=== PATIENT | female | born 1970 | race African-American/Black ===

== ENCOUNTER 2024-11-24 01:25 | Day surgery (SDC) | payer OTHER, SELFPAY ==
[2024-11-18 09:56] VITALS: BMI 38.0
--- NOTE | 2024-11-18 09:57 | PC.NURSE ---
Report to the Outpatient Waiting Room, entrance under the green pavilion located off [facility], at time _0700_ on date _[id number]_. Planned Procedure Time: _0900_.? Time changes happen often and if your time is changed the preop area will call you the afternoon before. - You and your visitor will be asked to self-screen and do not enter if you have any COVID symptoms. Please call surgeon if you need to reschedule. - A mask is optional within the hospital at this time. Patients may have clear liquids (water, carbonated beverages, clear teas, apple juice) until 3 hours prior to surgery with a maximum of 20 ounces. - No food from midnight until time of surgery and no smoking, or chewing tobacco (or any form of nicotine). No chewing gum, candy or mints. Take only the following medications with a SIP of water on the morning of surgery: ___None____ DO NOT STOP ANY OF YOUR OTHER PRESCRIPTION MEDICATIONS PRIOR TO SURGERY EXCEPT THE FOLLOWING Hold all vitamins and supplements for 3 days per anesthesiologist. Medications to discontinue per physician Date to take last xvgk___[id number]___ Please no make-up, nail portuguese, hairspray, perfume, deodorant, or body powder the day of surgery.? No jewelry (including any body piercings) or valuables the day of surgery, leave them at home.? Please take a shower or bath the night before, or the morning of, surgery with an antibacterial soap.? Wear comfortable, loose fitting clothing.? - Jewelry must be removed prior to entering the operating room.? Rings and piercings that are not removed may be cut off. - The hospital will not accept responsibility for valuables.? - Please leave all valuables, including medications, at home the day of surgery. If you are going home after surgery, a licensed team cdl driver must drive you home.? - NO public transportation without another adult if you receive anesthesia. - We recommend that an adult stay with you for 24 hours following discharge. - We also recommend that you do not drive, make important decision, drink alcoholic beverages, or take any drugs that were not prescribed by your health care provider for at least 24 hours after your discharge time. Follow any additional instructions given to you from your surgeon. Telephone instructions given to __Denise___and asked if any additional questions and then verbalized understanding. Patient advised to call surgeon office or pre surgery nurse liaison [phone] if any additional questions.
--- OUTSIDE RECORDS SUMMARY | 2024-11-24 01:28 | XMS_ITS | Clinical Summary ---
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 Name Role Phone Unavailable Primary Care Provider Unavailabl e Social History Tobacco Use Types Packs/Day Years Used Date Smoking Tobacco: Never Assessed Comments Unknown Sex and Gender Information Value Date Recorded Sex Assigned at Not on file Legal Sex Female 2:32 PM [employer] Gender Identity Not on file Sexual Orientation Not on file Plan of Treatment Health Maintenance Due Date Last Done Comments Hepatitis C Virus (HCV) Screening 1968 TdaP Immunization 1968 Hepatitis B Immunization (1 of 3 - 19+ 3-dose series) 08/18/1987 Pap Smear 1989 Cervical Cancer Screening (CCS) 1998 HPV/Cotest 1998 Colonoscopy 2013 Colorectal Cancer Screening 2013 Cologuard 2018 Immunochemical Fecal Occult Blood 2018 Mammogram 2018 Pneumococcal Immunization (5 0+ years) (1 of 1 - PCV) 2018 Influenza Immunization (#1) 02/16/20240 10/2019, 08/18/2019 SARS-COV-2 Immunization (2023- season) 2024 Respiratory Syncytial Virus (RSV) Immunization (Adult) (1 - 1-dose 75+ series) 08/18/2043 Zoster Immunization Completed 04/21/2020, 08/18/2019 Meningococcal Immunization (ACWY) Aged Out No longer eligible b ased on patient's age to complete this topic Pneumococcal Immunization Combined Aged Out No longer eligible b ased on patient's age to complete this topic Rotavirus Immunization Aged Out No lo nger eligible based on patient's age to complete this topic
--- OUTSIDE RECORDS SUMMARY | 2024-11-24 01:28 | XMS_ITS | Data Portability ---
Author Organization [facility] Address [address] [place] [address] Assessment No assessment recorded. Plan of Treatment Reminders Order Date Submit Date Provider Last Modified By Organization Details Last Modified Time Details Appointments ANY 2024 08:00A DEEDEE Calvin Not available Not available Not available ANY 2024 09:00A DEEDEE Calvin Not available Not available Not available Lab HbA1c (hemoglob in A1c), blood 2024 025 In-Office Order, Internal Use Only DO Not Attach Compendium DO Not Attach Compendium, Do Not Delete/merge, [id number] 11/10/2024 09:01:09 CMP, serum or plasma 2024 025 [facility], [address] [place] [address], [id number], 07/27/2024 13:25:00 vitamin D, 25-hydrox y, total, serum 2024 025 [facility], [facility] [place], [id number], 07/27/2024 13:27:23 HbA1c (hemoglob in A1c), blood 2024 025 TAY In-Office Order, Internal Use Only DO Not Attach Compendium DO Not Attach Compendium, Do Not Delete/merge, [id number] 07/09/2024 06:54:46 microalbu min/creat inine, mass ratio, urine 2024 025 [facility], [address] [place] [address], [id number], 07/27/2024 13:25:51 lipid panel, serum 2023 025 [facility], [address] [place] [address], [id number], 09/07/2024 08:05:20 hepatic function panel, serum 2023 025 [facility], [address] [place] [address], [id number], 09/07/2024 08:05:21 HbA1c (hemoglob in A1c), blood 2023 025 [facility], [address] [place] [address], [id number], 09/07/2024 08:05:21 BMP, serum or plasma 2023 025 [facility], [address] [place] [address], [id number], 09/07/2024 08:05:21 CBC w/ auto diff 2023 025 [facility], [address] [place] [address], [id number], 09/07/2024 08:05:21 GFR, estimated (eGFR), serum 2023 025 [facility], [address] [place] [address], [id number], 09/07/2024 08:05:21 creatinin e, urine 2023 025 [facility], [address] [place] [address], [id number], 09/07/2024 08:05:20 TSH + free T4, serum 2023 025 [facility], [address] [place] [address], [id number], 09/07/2024 08:05:21 hepatic function panel, serum [address] [facility], [address] [place] [address], [id number], 04/01/2024 14:51:12 lipid panel, serum 2023 024 [facility], [address] [place] [address], [id number], 03/31/2024 14:38:36 CBC w/ auto diff [address] [facility], [address] [place] [address], [id number], 04/01/2024 14:51:11 BMP, serum or plasma [address] [facility], [address] [place] [address], [id number], 04/01/2024 14:51:11 erythrocy te sedimenta tion rate by westergre n method [address] [facility], [address] [place] [address], [id number], 04/01/2024 14:51:11 CK (creatine kinase), total, serum [address] [facility], [address] [place] [address], [id number], 04/01/2024 14:51:11 Referral cardiolog ist referral - Abnormal ECG and HTN 2024 025 [email or web address] Cardiology [facility], [address], [address], [place], [id number], 11/10/2024 08:44:02 Procedures None recorded. Surgeries None recorded. Imaging US, parotid gland - Mass on CT head [address] Radiology[facility], [address] [place], [address], 11/10/2024 08:44:02 XR, finger(s) - xray right index finger, DIP/PIP pain 2024 025 [facility], [address] [place], [address], 09/25/2024 17:15:20 CT, coronary calcium score [address] [facility] Scheduling, [facility], [place], [address], 03/23/2024 12:02:36 Medication Orders lisinopri l 20 mg tablet 2024 025 [facility] #[id number], [address], [place], [id number], 11/10/2024 08:31:34 Medrol (Tyrone) 4 mg tablets in a dose pack 2024 025 [facility] #[id number], [address], [place], [id number], 11/10/2024 08:13:25 cholecalc iferol (vitamin D3) 1,250 mcg (50,000 unit) capsule 2024 025 [facility] #[id number], [address], [place], [id number], 07/08/2024 12:36:15 lisinopri l 5 mg tablet 2024 025 [facility] #[id number], [address], [place], [id number], 07/08/2024 12:36:16 Mounjaro 10 mg/0.5 mL subcutane ous pen injector 2024 025 [facility] #[id number], [address], [place], [id number], 07/08/2024 12:38:24 Crestor 5 mg tablet 2023 025 [facility] #[id number], [address], [place], [id number], 11/10/2024 08:13:54 losartan 25 mg tablet 2023 024 [facility] #[id number], [address], [place], [id number], 06/08/2024 09:11:03 Repatha Syringe 140 mg/mL subcutane ous syringe 2023 024 [facility], [address], [place], [id number], 04/30/2024 11:17:08 Patient TargetsNo targets recorded. Patient Instructions Encounter Date Encounter Id Patient Instructions Last Modified By Organization Details Last Modified Time 03/10/2024 [id number] A healthy lifestyle: care instructions [email or web address] Not available 03/10/2024 10:45:42 07/08/2024 [id number] A healthy lifestyle: care instructions [email or web address] Not available 07/08/2024 12:36:09 09/23/2024 [id number] rotator cuff: exercises [email or web address] Not available 09/23/2024 17:57:33 A healthy lifestyle: care instructions [email or web address] Not available 09/23/2024 17:47:47 11/10/2024 [id number] A healthy lifestyle: care instructions [email or web address] Not available 11/10/2024 08:31:25 Reason for Referral Rn Licensed Practical Referral for El ectrocardiogram abnormal Abnormal ECG and HTN Referring Physician: Alfonso Butt, Family Medicine, Encounter Date: 11/10/2024 Results Created Date Observation Date Name Description Value Unit Range Abnormal Flag Note LastModifiedBy Organization Detail LastModifiedTime 03/04/20 24 03/04/2024 Hemog lobin A1c/H emogl obin. total in Blood hemoglobin A1C, POC 6 % low: 4%high : 5.6% Hemog lobin A1C, POC 6.0 4.0 - 5.6 % Not Available Not Available 09/23/2024 04:18:54 11/03/1911/02/2024 Compr ehens vickie metab olic 1999 panel - Serum or Plasm a glucose [mass/volume ] in serum or plasma 92 text: 70 - 99 mg/dL GLUCO SE 92 70 - 99 MG/DL 11/02 1:[address] [facility] Not Available Not Available 11/02/2024 15:19:02 11/03/19 25 11/02/2024 Compr ehens vickie metab olic 1999 panel - Serum or Plasm a urea nitrogen [mass/volume ] in serum or plasma 13 text: 7 - 18 mg/dL BUN 13 7 - 18 MG/DL 11/02 1:[address] [facility] Not Available Not Available 11/02/2024 15:19:02 11/03/19 25 11/02/2024 Compr ehens vickie metab olic 1999 panel - Serum or Plasm a creatinine [mass/volume ] in serum or plasma 0.67 text: 0.55 - 1.02 mg/dL CREAT ININE S/P/B 0.67 0.55 - 1.02 MG/DL 11/02 1:[address] [facility] Not Available Not Available 11/02/2024 15:19:02 11/03/19 25 11/02/2024 Compr ehens vickie metab olic 2000 panel - Serum or Plasm a sodium [moles/volum e] in serum or plasma 136 text: 136 - 145 mmol/L SODIU M S/P/B 136 136 - 145 MMOL/ L 11/02 1:37 PM CDT [facility] Not Available Not Available 11/02/2024 15:19:02 11/03/19 25 11/02/2024 Compr ehens vickie metab olic 1999 panel - Serum or Plasm a potassium [moles/volum e] in serum or plasma 4.1 text: 3.5 - 5.1 mmol/L POTAS SIUM S/P/B 4.1 3.5 - 5.1 MMOL/ L 11/02 1:37 PM CDT [facility] Not Available Not Available 11/02/2024 15:19:02 11/03/19 25 11/02/2024 Compr ehens vickie metab olic 1999 panel - Serum or Plasm a chloride [moles/volum e] in serum or plasma 107 text: 97 - 115 mmol/L CHLOR ISABEL S/P/B 107 97 - 115 MMOL/ L 11/02 1:37 PM CDT [facility] Not Available Not Available 11/02/2024 15:19:02 11/03/19 25 11/02/2024 Compr ehens vickie metab olic 1999 panel - Serum or Plasm a carbon dioxide, total [moles/volum e] in serum or plasma 25 text: 21 - 32 mmol/L CO2 25.0 21 - 32 MMOL/ L 11/02 1:37 PM CDT [facility] Not Available Not Available 11/02/2024 15:19:02 11/03/19 25 11/02/2024 Compr ehens vickie metab olic 1999 panel - Serum or Plasm a calcium [mass/volume ] in serum or plasma 8.9 text: 8.5 - 10.1 mg/dL CALCI UM S/P/B 8.9 8.5 - 10.1 MG/DL 11/02 1:37 PM CDT [facility] Not Available Not Available 11/02/2024 15:19:02 11/03/19 25 11/02/2024 Compr ehens vickie metab olic 2000 panel - Serum or Plasm a bilirubin.to terry [mass/volume ] in serum or plasma 0.2 text: 0.2 - 1.2 mg/dL BILIR UBIN TOTAL S/P/B 0.2 0.2 - 1.2 MG/DL 11/02 1:[address] [facility] Not Available Not Available 11/02/2024 15:19:02 11/03/19 25 11/02/2024 Compr ens vickie metab ol 1999 panel - Serum or Plasm a protein [mass/volume ] in serum or plasma 7.7 text: 6.4 - 8.2 g/dL TOTAL PROTE IN S/P/B 7.7 6.4 - 8.2 G/DL 11/02 1:[address] [facility] Not Available Not Available 11/02/2024 15:19:02 11/03/19 25 11/02/2024 Compr ehens vickie metab olic 1999 panel - Serum or Plasm a albumin [mass/volume ] in serum or plasma 3.5 text: 3.4 - 5.0 g/dL ALBUM IN S/P/B 3.5 3.4 - 5.0 G/DL 11/02 1:[address] [facility] Not Available Not Available 11/02/2024 15:19:02 11/03/19 25 11/02/2024 Compr ehens vickie metab olic 1999 panel - Serum or Plasm a aspartate aminotransfe rase [enzymatic activity/vol ume] in serum or plasma 18 U/L low: 15U/Lh igh: 37U/L AST 18 15 - 37 U/L 11/02 1:37 PM CDT [facility] Not Available Not Available 11/02/2024 15:19:02 11/03/19 25 11/02/2024 Compr ehens vickie metab olic 1999 panel - Serum or Plasm a alanine aminotransfe rase [enzymatic activity/vol ume] in serum or plasma 26 U/L low: 14U/Lh igh: 55U/L ALT 26 14 - 55 U/L 11/02 1:37 PM CDT [facility] Not Available Not Available 11/02/2024 15:19:02 11/03/19 25 11/02/2024 Compr ehens vickie metab olic 1999 panel - Serum or Plasm a alkaline phosphatase [enzymatic activity/vol ume] in serum or plasma 71 U/L low: 50U/Lh igh: 136U/L ALKAL INE PHOSP HATAS E S/P/B 71 50 - 136 U/L 11/02 1:37 PM CDT [facility] Not Available Not Available 11/02/2024 15:19:02 11/03/19 25 11/02/2024 Compr ehens vickie metab olic 1999 panel - Serum or Plasm a anion gap in serum or plasma by calculation 4 text: 2 - 10 mmol/L ANION GAP 4.0 2 - 10 MMOL/ L 11/02 1:37 PM CDT [facility] Not Available Not Available 11/02/2024 15:19:02 11/03/19 25 11/02/2024 Compr ehens vickie metab olic 1999 panel - Serum or Plasm a urea nitrogen/cre atinine [mass ratio] in serum or plasma 19.4 low: 6high: 26 BUN CREAT ININE RATIO 19.4 6 - 26 11/02 1:37 PM CDT [facility] Not Available Not Available 11/02/2024 15:19:02 11/03/19 25 11/02/2024 Compr ehens vickie metab olic 1999 panel - Serum or Plasm a albumin/glob ulin [mass ratio] in serum or plasma 0.8 text: 1.0 - 2.0 ratio low A/G RATIO 0.8 (L) 1.0 - 2.0 RATIO 11/02 1:37 PM CDT [facility] Not Available Not Available 11/02/2024 15:19:02 11/03/19 25 11/02/2024 Compr ehens vickie metab olic 2000 panel - Serum or Plasm a glomerular filtration rate [volume rate/area] in serum, plasma or blood by creatinine-b ased formula (CKD-epi 2020)/1.73 sq M >90 text: >90 mL/min /1.73 M2 GFR ESTIM ATE >90 >90 ML/MD N/1.7 3 M2 11/02 1:37 PM CDT [facility] Not Available Not Available 11/02/2024 15:19:02 11/03/1911/02/2024 Britt duncan 1999 panel - Serum or Plasm a interpretati on and review of laboratory results Abnorm al Not Available Not Available 15:19:02 11/03/1911/02/2024 CBC W Auto Diffe renti al panel - Blood leukocytes [#/volume] in blood by automated count 6.84 text: 4.5 - 11.0 x10'3/ uL WBC 6.84 4.5 - 11.0 x10'3 /uL 11/02 1:18 PM CDT [facility] Not Available Not Available 11/02/2024 15:19:02 11/03/19 25 11/02/2024 CBC W Auto Diffe renti al panel - Blood erythrocytes [#/volume] in blood by automated count 4.76 text: 4.20 - 5.40 x10'6/ uL RBC 4.76 4.20 - 5.40 x10'6 /uL 11/02 1:18 PM CDT [facility] Not Available Not Available 11/02/2024 15:19:02 11/03/19 25 11/02/2024 CBC W Auto Diffe renti al panel - Blood hemoglobin [mass/volume ] in blood 13.8 text: 12.0 - 16.0 g/dL HGB 13.8 12.0 - 16.0 G/DL 11/02 1:18 PM CDT [facility] Not Available Not Available 11/02/2024 15:19:02 11/03/19 25 11/02/2024 CBC W Auto Diffe renti al panel - Blood hematocrit [volume fraction] of blood by calculation 41.8 % low: 38%hig h: 48% HCT 41.8 38.0 - 48.0 % 11/02 1:18 PM CDT [facility] Not Available Not Available 11/02/2024 15:19:02 11/03/19 25 11/02/2024 CBC W Auto Diffe renti al panel - Blood MCV [entitic mean volume] in red blood cells 87.8 text: 81.0 - 99.0 fL MCV 87.8 81.0 - 99.0 FL 11/02 1:18 PM CDT [facility] Not Available Not Available 11/02/2024 15:19:02 11/03/19 25 11/02/2024 CBC W Auto Diffe renti al panel - Blood MCH [entitic mass] 29 pg low: 27pghi gh: 31pg MCH 29.0 27.0 - 31.0 PG 11/02 1:18 PM CDT [facility] Not Available Not Available 11/02/2024 15:19:02 11/03/19 25 11/02/2024 CBC W Auto Diffe renti al panel - Blood MCHC [entitic mass/volume] in red blood cells 33 text: 32.0 - 36.0 g/dL MCHC 33.0 32.0 - 36.0 G/DL 11/02 1:18 PM CDT [facility] Not Available Not Available 11/02/2024 15:19:02 11/03/19 25 11/02/2024 CBC W Auto Diffe renti al panel - Blood RDW 13.4 % low: 11.5%h igh: 14.5% RDW 13.4 11.5 - 14.5 % 11/02 1:18 PM CDT [facility] Not Available Not Available 11/02/2024 15:19:02 11/03/19 25 11/02/2024 CBC W Auto Diffe renti al panel - Blood platelets [#/volume] in blood 341 text: 130 - 400 x10'3/ uL PLT 341 130 - 400 x10'3 /uL 11/02 1:18 PM CDT [facility] Not Available Not Available 11/02/2024 15:19:02 11/03/19 25 11/02/2024 CBC W Auto Diffe renti al panel - Blood platelet [entitic mean volume] in blood 10.3 text: 9.3 - 12.2 fL MPV 10.3 9.3 - 12.2 FL 11/02 1:18 PM CDT [facility] Not Available Not Available 11/02/2024 15:19:02 11/03/19 25 11/02/2024 CBC W Auto Diffe renti al panel - Blood differential cell count method - blood AUTOMA EUGENE DIFFER ENTIAL DIFFE RENTI AL TYPE AUTOM ATED DIFFE RENTI AL 11/02 1:18 PM CDT [facility] Not Available Not Available 11/02/2024 15:19:02 11/03/19 25 11/02/2024 CBC W Auto Diffe renti al panel - Blood neutrophils/ leukocytes in blood by automated count 56 % NEUTR OPHIL S % 56.0 % 11/02 1:18 PM CDT [facility] Not Available Not Available 11/02/2024 15:19:02 11/03/19 25 11/02/2024 CBC W Auto Diffe renti al panel - Blood lymphocytes/ leukocytes in blood by automated count 34.1 % LYMPH OCYTE S % 34.1 % 11/02 1:18 PM CDT [facility] Not Available Not Available 11/02/2024 15:19:02 11/03/19 25 11/02/2024 CBC W Auto Diffe renti al panel - Blood monocytes/le ukocytes in blood by automated count 7.2 % MONOC YTES % 7.2 % 11/02 1:18 PM CDT [facility] Not Available Not Available 11/02/2024 15:19:02 11/03/19 25 11/02/2024 CBC W Auto Diffe renti al panel - Blood eosinophils/ leukocytes in blood by automated count 1.9 % EOSIN OPHIL S 1.9 % 11/02 1:18 PM CDT [facility] Not Available Not Available 11/02/2024 15:19:02 11/03/19 25 11/02/2024 CBC W Auto Diffe renti al panel - Blood basophils/le ukocytes in blood by automated count 0.7 % BASOP HILS 0.7 % 11/02 1:18 PM CDT [facility] Not Available Not Available 11/02/2024 15:19:02 11/03/19 25 11/02/2024 CBC W Auto Diffe renti al panel - Blood immature granulocytes /leukocytes in blood by automated count 0.1 % IMMAT URE GRANS % 0.1 % 11/02 1:18 PM CDT [facility] Not Available Not Available 11/02/2024 15:19:02 11/03/19 25 11/02/2024 CBC W Auto Diffe renti al panel - Blood neutrophils [#/volume] in blood 3.83 text: 1.80 - 7.70 x10'3/ uL ABS. NEUTR OPHIL S 3.83 1.80 - 7.70 x10'3 /uL 11/02 1:18 PM CDT [facility] Not Available Not Available 11/02/2024 15:19:02 11/03/19 25 11/02/2024 CBC W Auto Diffe renti al panel - Blood lymphocytes [#/volume] in blood 2.33 text: 1.00 - 4.80 x10'3/ uL ABS. LYMPH OCYTE S 2.33 1.00 - 4.80 x10'3 /uL 11/02 1:18 PM CDT [facility] Not Available Not Available 11/02/2024 15:19:02 11/03/19 25 11/02/2024 CBC W Auto Diffe renti al panel - Blood monocytes [#/volume] in blood 0.49 text: 0.24 - 0.86 x10'3/ uL ABS. MONOC YTES 0.49 0.24 - 0.86 x10'3 /uL 11/02 1:18 PM CDT [facility] Not Available Not Available 11/02/2024 15:19:02 11/03/1911/02/2024 CBC W Auto Diffe renti al panel - Blood eosinophils [#/volume] in blood 0.13 text: 0.04 - 0.36 x10'3/ uL ABS. EOSIN OPHIL S 0.13 0.04 - 0.36 x10'3 /uL 11/02 1:18 PM CDT [facility] Not Available Not Available 11/02/2024 15:19:02 11/03/1911/02/2024 CBC W Auto Diffe renti al panel - Blood basophils [#/volume] in blood 0.05 text: 0.01 - 0.08 x10'3/ uL ABS. BASOP HILS 0.05 0.01 - 0.08 x10'3 /uL 11/02 1:18 PM CDT [facility] Not Available Not Available 11/02/2024 15:19:02 11/03/19 25 11/02/2024 CBC W Auto Diffe renti al panel - Blood immature granulocytes [#/volume] in blood 0.01 text: 0.00 - 0.49 x10'3/ uL ABS. IMMAT URE GRANU LOCYT ES 0.01 0.00 - 0.49 x10'3 /uL 11/02 1:18 PM CDT [facility] Not Available Not Available 11/02/2024 15:19:02 11/11/1911/10/2024 HbA1c (hemo globi n A1c), blood HbA1c 5.9 Not Available In-Office Order Internal Use Only DO Not Attach Compendium DO Not Attach Compendium, Do Not Delete/merge, [id number] 11/10/2024 09:00:22 03/14/[address], coron jett calci um score [facility] [address] [place] [address] [facility] [address] [facility] [place] [address] EXAMIN ATION: Multis lice Helica l CT Hanks ry Calciu m Damion g REASON FOR EXAM: Screen ing for heart diseas e COMPAR FERNY: None TECHNI QUE: Multis lice helica l CT images of the proxim al hanks ry arteri es with a comput er genera eugene calcif icatio n score. A dose loweri ng techni que was used for this proced ure, which may includ e, but is not limite d to, dose reduct ion techni que, automa eugene exposu re contro l, iterat vickie recons tructi on, ALARA (As Low As Reason ably Achiev able), or Image Gently techni ques. Result s: Left main: 0 LAD: 18.3 Circum flex: 0 Right hanks ry: 43.7 Total Score: 62.0 Commen ts: There is no medias tinal adenop athy, and there are no pulmon jett nodule s in the visual ized portio ns of the chest. Calciu m score guidel rody: Total Score* Calciu m Plaque Baggs *Risk *Proba bility of signif icant CAD 0 No Plaque Very Low Very unlike ly 1-10 Minima l Plaque Low Unlike ly 11-100 Mild Plaque Modera te Low likeli elliott of signif icant stenos is <50% 101-40 0 Modera te Plaque Modera tely High Modera te likeli elliott of signif icant stenos is (>50%) Over 400 Extens vickie Plaque High High likeli elliott of signif icant stenos is (>50%) The amount of hanks ry artery calcif icatio n correl ates with the severi ty of hanks ry athero sclero sis and the probab ility of future signif icant event. Calcif icatio n is not site specif ic for stenos is and does not identi fy non-ca lcifie d athero sclero tic plaque , but rather indica abdullahi the extent of athero sclero sis in the hanks ry arteri es overal l. The score may be used as an indica tor for risk factor modifi cation or additi onal cardia c testin g. Signif icant change in calciu m score over time may be indica tive of subseq uent diseas e develo pment or useful as a benchm ark to assess preven tative progra ms. =====I MPRESS ION:== === Total Score: 62.0 Mild plaque , modera te risk, low likeli elliott of signif icant stenos is (<50%) . ====== ====== ====== === Ordere d By: FAY COBB [facility] ly Signed By: Devin langston MD on 12:03 PM Interp reted By: Devin langston MD, 12:[address] [facility], [place], [address], 03/23/2024 12:02:23 07/21/19 25 07/21/2024 MAMMO , scree edil, tomos ynthe sis, bilat eral No observ ation record ed. BARCODE Not Available 2024 16:49:11 Result Notes None recorded. Problems Name Problem SNOMED Code Status Onset Date Resolution Date Notes Provider Name and Address Organization Details Recorded Time Jaw pain 339594298 Active 2023 Fay Godoy DO Attn: Sadiq driver,[address] [facility], [place], [address], [facility] 4 10:41:56 Type 2 diabetes mellitus without complicatio n 752899339 Active 2023 Fay Godoy DO Attn: Sadiq driver,[address] [facility], [place], [address], [facility] 4 10:42:24 Obesity 150354843 Active 2023 Fay Godoy DO Attn: Sadiq driver,[address] [facility], [place], [address], [facility] - [facility] 4 10:45:39 Essential hypertensio n 49655552 Active 2024 DEEDEE Roldan Attn: Sadiq driver,[address] [facility], [place], [address], [place] - [facility] 5 08:45:02 Electrocard iogram abnormal 987207448 Active 2024 DEEDEE Roldan Attn: Sadiq g,[address] [facility], [place], [address], [facility] - [facility] 5 08:45:04 Mass of left parotid gland [id number] 9103 Active 2024 DEEDEE Roldan Attn: Sadiq driver,[address] [facility], [place], [address], [place] - [facility] 5 08:45:05 Problem Notes None recorded. Medical Equipment None Reported. Allergies Allergen ID Allergen Name Allergen Category Reaction Reaction Severity Criticality Documentation Date Start Date Code Code System Note Provider Name and Address Organization Details Recorded Time [id number] Trulicity medicatio n rash moderate high 03/10/2024 46282 96 RxNorm Rossi Ramos MA null, [place] - [facility] 4 10:36:00 Medications Name Sig Start Date Stop Date Status Note LastModified by Organization Details LastModified Time amoxicillin 500 mg capsule 06/08 completed Not Available Not Available Not Available lisinopril 20 mg tablet Take 1 tablet every day by oral route. 2024 active Not Available Not Available Not Avai lable Medrol (Tyrone) 4 mg tablets in a dose pack Take 1 dose pk by oral route. 11/10 completed Not Available Not Available Not Available losartan 25 mg tablet Take 1 tablet every day by oral route. 06/08 completed Not Available Not Available Not Available lisinopril 5 mg tablet Take 1 tablet every day by oral route. 2024 active Not Available Not Available Not Avai lable rosuvastati n 5 mg tablet Take 1 tablet every day by oral route. 11/10 completed Not Available Not Available Not Available cholecalcif genoveva (vitamin D3) 1,250 mcg (50,000 unit) capsule Take 1 capsule every week by oral route. 2024 active Not Available Not Available Not Avai lable Repatha Syringe 140 mg/mL subcutaneou s syringe Inject 1 mL every 2 weeks by subcutane ous route for 30 days. 04/30 completed Not Available Not Available Not Available Mounjaro 7.5 mg/0.5 mL subcutaneou s pen injector Inject 7.5 mg every week by subcutane ous route. 09/23 completed Not Available Not Available Not Available Mounjaro 10 mg/0.5 mL subcutaneou s pen injector Inject 10 mg every week by subcutane ous route. 2024 active Not Available Not Available Not Avai lable Vitals Date Recorded Body height Oxygen saturation Oxygen saturation in Arterial blood by Pulse oximetry Heart rate Body mass index (BMI) Body weight Systolic blood pressure Diastolic blood pressure Provider Name and Address Organization Details Last Updated DateTime 5 154.94 cm 99 % 99 % 85 /min 39.7 kg/m2 55652.4 g 138 mm[Hg] 82 mm[Hg] Alida Diallo MA [place] - [facility] 5 12:12:05 Date Recorded Body height Body mass index (BMI) Body weight Oxygen saturation Oxygen saturation in Arterial blood by Pulse oximetry Heart rate Systolic blood pressure Diastolic blood pressure Provider Name and Address Organization Details Last Updated DateTime 5 154.94 cm 38.8 kg/m2 86953.5 9 g 99 % 99 % 88 /min 148 mm[Hg] 82 mm[Hg] Alida Diallo [place] - [facility] 5 17:34:01 Date Recorded Body height Body mass index (BMI) Body weight Oxygen saturation Oxygen saturation in Arterial blood by Pulse oximetry Heart rate Systolic blood pressure Diastolic blood pressure Provider Name and Address Organization Details Last Updated DateTime 5 154.94 cm 39.3 kg/m2 01208.2 6 g 98 % 98 % 100 /min 160 mm[Hg] 88 mm[Hg] Zhane Kim LPN [facility] 5 08:19:28 Date Recorded Systolic blood pressure Diastolic blood pressure Provider Name and Address Organization Details Last Updated DateTime 03/10/2024 154 mm[Hg] 94 mm[Hg] Fay Godoy DO Attn: [address] [place], [address], [facility] 03/10/2024 10:48:03 Date Recorded Body height Body mass index (BMI) Body weight Provider Name and Address Organization Details Last Updated DateTime 03/10/2024 154.94 cm 39.2 kg/m2 21999.07 g Rossi Ramos MA [facility] 03/10/2024 10:35:38 Date Recorded Systolic blood pressure Diastolic blood pressure Provider Name and Address Organization Details Last Updated DateTime 06/08/2024 134 mm[Hg] 84 mm[Hg] Fay Godoy DO Attn: [address] [place], [address], [facility] 06/08/2024 09:24:36 Date Recorded Body height Body mass index (BMI) Body weight Oxygen saturation Oxygen saturation in Arterial blood by Pulse oximetry Heart rate Provider Name and Address Organization Details Last Updated DateTime 4 154.94 cm 39.4 kg/m2 94754.9 6 g 99 % 99 % 79 /min Tigist Jacinto MA [facility] 4 09:08:45 Social History Question Answer Notes LastModified by [email or web address] Details LastModified Time Tobacco Smoking Status Never Smoker Rossi Ramos MA [facility], [facility] 03/10/2024 10:37:32 What Is Your Level Of Caffeine Consumption? Occasional Information not available 03/10/2024 What Was The Date Of Your Most Recent Tobacco Screening? 11/10/2024 [email or web address] Information not available 11/10/2024 Has Tobacco Cessation Counseling Been Provided? No Information not available 03/10/2024 Sex: Female Functional Status Question Answer Note LastModified by [email or web address] Details LastModified Time Do you use any illicit or recreational drugs? No Information not available 03/10/2024 Do you or have you ever used any other forms of tobacco or nicotine? No Information not available 03/10/2024 What is your level of alcohol consumption? Occasional glewisma Information not available 07/08/2024 Mental Status None recorded. Family History Nothing Reported. Medical History Condition Response Coronary Artery Disease N Other N High Blood Pressure N Atrial Fibrillation N Kidney or Bladder Problems N Thyroid Problems N GI Problems N Depression N COPD N Blood Clots N Have you had a mammogram in the last yea r? N Skin Problems N Eating Disorder N Anemia N Heart Attack (MD) N Anxiety Disorder N Diabetes Y Muscle, Joint, or Bone Problems N Arthritis N Seizures/Epilepsy N Have you had a colonoscopy in the last 1 0 years? N Acid Reflux (GERD) N Cancer N Stroke N Asthma N Allergies N Have you had a PSA blood test in the las t year? N ADHD N Substance Abuse N High Cholesterol N Hepatitis N Liver Disease N Schizophrenia N Headaches N Osteoporosis N Heart Failure N Gynecological HistoryNo gynecological history recorded. Obstetrics History GPAL:G 0 P 0 0 0 0 Immunizations Vaccine Type Date Status Note Provider Nam e and Address Organization Details Recorded Time Influenza, MDCK, quadrivalent, PF 0 completed Not Available [facility] 11/10/2024 07:59:19 zoster recombinant 0 completed Not Available [facility] 11/10/2024 07:59:19 Influenza, split virus, quadrivalent, PF 0 completed Not Available [facility] 11/10/2024 07:59:19 zoster recombinant 0 completed Not Available [facility] 11/10/2024 07:59:19 COVID-19, mRNA, LNP-S, PF, 30 mcg/0.3 mL dose 1 completed Not Available [facility] 11/10/2024 07:59:19 COVID-19, mRNA, LNP-S, PF, 30 mcg/0.3 mL dose 1 completed Not Available [facility] 11/10/2024 07:59:19 influenza, unspecified formulation 1 completed Not Available [facility] 11/10/2024 07:59:19 COVID-19, mRNA, LNP-S, PF, 100 mcg/0.5mL dose or 50 mcg/0.25mL dose 1 completed Not Available [facility] 11/10/2024 07:59:19 influenza, unspecified formulation 2 completed Not Available [facility] 11/10/2024 07:59:19 Influenza, split virus, trivalent, PF 5 completed DEEDEE Roldan Attn: Accounting[address] [facility], [place], [address], [facility] 07/08/2024 13:18:28 Past Encounters Encounter ID Performer Location Encounter Start Date Encounter Closed Date Diagnosis/Indication Diagnosis SNOMED-CT Code Diagnosis ICD10 Code Diagnosis Note [id number] Fay Godoy [facility] [place] [address] [address] 03/10/2024 09:37:46 03/10/2024 11:12:12 Jaw pain 144151456 R68.84 stop statinwas at dentisttol d frida a cbcchem 7cpksed rate Type 2 benigno betes mellitus without complication 835607297 E11.9 meds reviewedst art asa 81 mghad been on lisinopril but was stopped by endocrinol ogystart repatha 140 mg im q 2 weekscheck a coronary artery screen Obesity 759079518 E66.8 [facility] Essential hypertension 47042391 I10 [id number] Fay Godoy DO [facility] [place] [address] [address] 06/08/2024 09:03:46 06/08/2024 09:44:45 Type 2 diabetes mellitus without complication 837571532 E11.9 meds reviewedas a 81 mgstart crestor 5 mglab 3 months Obesity 374943878 E66.9 healthy dietweight losschroni c conditionn ot at goal Jaw pain 902096400 R68.8 4 stop statinwas at dentisttol d okcheck a cbcchem 7cpksed rate Dyslipidemia 653904344 E 78.5 crestor 5 mg at hs Fatigue 16007641 R53.83 [id number] DEEDEE Roldan [facility] [place] [address] [address] 07/08/2024 11:50:53 07/10/2024 09:24:03 Type 2 diabetes mellitus without complication 922080810 E11.9 This is a well controlled chronic condition continue current meds follow up six-month Check blood sugars as directed , record and bring on visit. yearly dilated eye exam. check feet daily and report callouses, corns or ulcers. 30 minutes exercise daily Diabetic diet, conservati ve carbohydra abdullahi, low in fat, high fiber, whole grains, lean meat Obesity 865636472 E66.9 Morbid obesity 037598395 E66.01 Vitamin D deficiency 347 75655 E55.9 Patient is to continue current dose pending new labs Administra tion of influenza vaccine 34839654 Z23 [id number] Fay Godoy, DO [facility] - [facility] [place] [address] [address] 09/23/2024 17:25:32 09/25/2024 16:05:30 Type 2 diabetes mellitus without complication 991946247 E11.9 This is a well controlled chronic condition continue current meds follow up six-month Check blood sugars as directed , record and bring on visit. yearly dilated eye exam. check feet daily and report calluses, corns or ulcers. 30 minutes exercise daily Diabetic diet, conservati ve carbohydra abdullahi, low in fat, high fiber, whole grains, lean meat Obesity 208917817 E66.9 Morbid obesity 218697341 E66.01 Pain in finger 75581594 M79.644 getting x-ray to rule out lose body Bursitis o f left shoulder 8833532338 01660 M75.52 ice, medrol, exercised Lateral ep icondylitis of left humerus 8877727095 98235 M77.12 ice medrol and tennis elbow strap [id number] Fay Godoy, DO [facility] [place] [address] [address] 11/10/2024 07:57:40 11/11/2024 14:20:19 Type 2 diabetes mellitus without complication 636099688 E11.9 This is a well controlled chronic condition continue current meds follow up six-month Check blood sugars as directed , record and bring on visit. yearly dilated eye exam. check feet daily and report calluses, corns or ulcers. 30 minutes exercise daily Diabetic diet, conservati ve carbohydra abdullahi, low in fat, high fiber, whole grains, lean meat Morbid obesity 282841551 E66.01 Mass of le ft parotid gland 2276369430 6673621 K11.8 getting us parotid Electrocar diogram abnormal 606939977 R94.31 needs to see cardiology Essential hypertension 79112538 I10 This is not controlled I am going to increase her lisinopril to 20 mg I will see her back in 6 weeks to new labs I am also sending her to Cardiology for abnormal EKG she is completely asymptomat ic in clinic Take meds as ordered. Decrease caffeine and salt intake, work on diet and weight loss. Aerobic exercise 4 times per week for 30 min. Call for elevated blood pressures. HIV screen ing declined [id number] 83873 Z53.20 Health Concerns Section Related Observation LastModified by Organization Detai ls LastModified Time None Recorded Concern Status LastModified by Organization Details LastModified Time None Recorded Advance Directives Directive None Recorded Payers Encounter Date Sequence Insurance Name Policy Number Policy Rodrigues Covered Member ID Rodrigues Member ID Guarantor Name 03/10/2024 1 FOR LIFE () Merline Clarke [id number] Merline Clarke 06/08/2024 1 [employer] - [employer] () Merline Clarke [id number] Merline Clarke 07/08/2024 1 [employer] - [employer] () Merline Clarke [id number] Merline Clarke 09/23/2024 1 [employer] () Merline Clarke [id number] Merline Clarke 11/10/2024 1 [employer] () Merline Clarke [id number] Merline Clarke Notes Date Note Type Note Provider Name and Address Organization Details Recorded Time 03/10/2024 text/html throbbing in rig ht upper and lower jawstarted recently 1 weekstarted rosuvastatin around the same timehad similar issue with atorvastatinhas DM Fay Godoy DO Attn: [address] [place], [place], [address] [place] [address], [facility] 03/10/2024 13:40:47 06/08/2024 text/html routine 3 month follow up doing well Fay Godoy DO Attn: Account[address] [place], [place], [address] [place] [address], [facility] 06/08/2024 10:19:15 07/08/2024 text/html Patient is in to reestablish with healthcare provider from previous clinic Annual physical -non-smoker:-exercise: yes-colonoscopy: at 48, good for 10-Shingles: UTD-Pneumococcal:-Flu shot: today-Covid shots:UTD-HPV: -mammogram:UTD-Pap: UTD-Bone density: Diabetes Last A1C:less than 7.0% 7-8% 8-9% greater than 9% 6.0Goal A1C less than:Current Therapy:GLP-1 RAStatin:yesACE/ARB:ye sFoot Exam:completed in the past 12 months-negativeNephrop athy Screening:completed in the past 12 months- negativePneumovax 23:Eye Exam:completed in the last 12 months- negativePatient Education:healthy diet:exercise:weight loss:foot care:complications of uncontrolled diabetes:medication compliance:Next Visit: 6 month(s) DEEDEE Roldan Attn: Accounting[address] [place], [address], [facility] 07/08/2024 13:23:13 09/23/2024 text/html Patient is in fo r routine follow up for the following medical conditions -non-smoker:-exercise: yes-colonoscopy: at 48, good for 10-Shingles: UTD-Pneumococcal:-Flu shot: today-Covid shots:UTD-HPV: -mammogram:UTD-Pap: UTD-Bone density: Diabetes Last A1C:less than 7.0% 7-8% 8-9% greater than 9% 6.0Goal A1C less than:Current Therapy:GLP-1 RAStatin:yesACE/ARB:ye sFoot Exam:completed in the past 12 months-negativeNephrop athy Screening:completed in the past 12 months- negativePneumovax 23:Eye Exam:completed in the last 12 months- negativePatient Education:healthy diet:exercise:weight loss:foot care:complications of uncontrolled diabetes:medication compliance:Next Visit: 6 month(s)left shoulder and elbow tender over last month, no new activities, sleeps on her side and on right index finger hurts for 6 weeks, no trauma DEEDEE Roldan Attn: Accounting[address] [facility], [place], [address], [facility] 09/23/2024 17:57:30 11/10/2024 text/html Patient is in fo r routine follow up for the following medical conditions -non-smoker:-exercise: yes-colonoscopy: at 48, good for 10-Shingles: UTD-Pneumococcal:-Flu shot: today-Covid shots:UTD-HPV: -mammogram:UTD-Pap: UTD-Bone density: Diabetes Last A1C:less than 7.0% 7-8% 8-9% greater than 9% 5.9Goal A1C less than:Current Therapy:GLP-1 RAStatin:yesACE/ARB:ye sFoot Exam:completed in the past 12 months-negativeNephrop athy Screening:completed in the past 12 months- negativePneumovax 23:Eye Exam:completed in the last 12 months- negativePatient Education:healthy diet:exercise:weight loss:foot care:complications of uncontrolled diabetes:medication compliance:Next Visit: 6 month(s)seen in ER for Elevated BP at [employer] appt, was having a very mild headache, had work up and found parotid mass, no other findings Zhane Kim LPN null, [place] - [facility] 11/10/2024 09:00:53 OBGyn Episode No OBEpisode recorded.
--- OUTSIDE RECORDS SUMMARY | 2024-11-24 01:28 | XMS_ITS | Referral Summary ---
Author Organization [facility] [facility] at the Medical Office Building Address [facility] [place] [address] Care Team Providers Care Creative Art Therapist Name Role Phone Alfonso Butt Primary Care Provider [phone] Mirella Og SENIOR STAFF SPECIALIZED EMPLOYMENT Unavailable [phone] Encounters Date Type Department Care Team Description 09/28/2024 1:03 PM CDT - 09/28/2024 11:59 PM CDT Hospital Encounter [facility] [address] [place] [address] Finger pain, right Discharge Disposition: Discharge to home or self care from Last 3 Months Allergies Active Allergy Reactions Criticality Noted Date Comments Dulaglutide Rash Medium 10/30/2023 Medications blood glucose diagnostic (glucose blood) strip Check sugars daily 100 each 11 3 Active lancets 31 gauge misc 1 each daily 100 each 3 3 Active blood-glucose meter misc Use daily or as directed for monitoring of diabetes. 1 each 3 Active lisinopriL (PRINIVIL,ZESTR IL) 10 mg tablet Take 1 tablet (10 mg total) by mouth daily 90 tablet 4 3 Active Additional Information Patient not taking.Reported on 07/18/2023 triamcinolone (KENALOG) 0.1 % cream Apply to affected area 1-2 times daily as needed. Avoid face and groin. 30 g 5 4 Active rosuvastatin (CRESTOR) 5 mg tablet TAKE 1 TABLET BY MOUTH 3 TIMES A WEEK 36 tablet 3 4 Active tirzepatide (Mounjaro) 7.5 mg/0.5 mL pen injector Inject 7.5 mg under the skin every 7 days 6 mL 1 5 Active Active Problems Problem Noted Date Diagnosed Date Pure hypercholesterolemia 10/18/2023 Rash 10/03/2023 Assessment & Plan (10/03/2023 7:58 AM CDT): Medications as ordered, skin care discussed Knee strain, right, initial encounter 07/18/2023 Assessment & Plan (07/18/2023 11:37 AM DRAWBENCH OPERATOR HELPER): We discussed options of physical therapy she has been doing home exercises which seem to be helping we agree to continue those exercises as needed a leave for the next 5 days ice with the option to call back if this does not get better we will get an x-ray and send her to physical therapy Type 2 diabetes mellitus with hyperglycemia 04/17 Type 2 diabetes mellitus with chronic kidney dis ease 05/02/2023 Other hyperlipidemia 03/13/2023 Assessment & Plan (03/04/2024 1:03 PM CDT): We discussed that although her cholesterol is in good range, statins still lower ASCVD risk in patients with diabetes. Will try rosuvastatin 5 mg TIW + CoQ10. Assessment & Plan (10/30/2023 1:45 PM CDT): Resume Lipitor. Assessment & Plan (07/10/2023 8:23 PM DRAWBENCH OPERATOR HELPER): LDL now at goal with consistent atorvastatin use. Assessment & Plan (03/13/2023 8:56 AM CDT): LDL elevated. Start atorvastatin 10 mg daily. Type 2 diabetes mellitus wit hout complication, without long-term current use of insulin 03/13/2023 Assessment & Plan (03/04/2024 1:04 PM CDT): A1c exceptional. We will reduce the dose of Mounjaro to 7.5 mg weekly due to diarrhea. Can remain off metformin. Eye exams are current. No neuropathy on monofilament exam. Assessment & Plan (10/30/2023 2:26 PM CDT): A1c now at goal. Increase Mounjaro by 2.5 mg weekly every 4 weeks as tolerated until we achieve 15 mg weekly, mostly for weight loss. Continue metformin 500 mg daily. Refer to nutrition. Assessment & Plan (07/10/2023 8:25 PM DRAWBENCH OPERATOR HELPER): A1c above our goal of 7% or less. Her GI symptoms may be due to the nanosupplement or metformin. I will have her stop the supplement and reduce metformin to 500 mg daily. As she desires weight loss, I have recommended that we start Mounjaro 2.5 mg weekly. We did discuss the potential for injection site reactions as there is some similarity to Trulicity, although the risk is acceptably low since this is a different compound. We also discussed the potential for GI side effects. If Mounjaro is not covered by insurance or not tolerated, then our alternative plan will be to start Farxiga. She will lower the metformin dose to 500 mg daily regardless. Assessment & Plan (03/13/2023 8:59 AM CDT): She has done a remarkable job cutting her A1c in half over a short time with diet, exercise, and metformin and I commended her efforts. Will continue metformin 500 mg BID for now. Emphasized low carb, Mediterranean-style diet and exercise at least 30 minutes per day, 5 days per week. She is very close to ur A1c goal of 7% or less and hopefully we will be able to reduce the doses of her medications or stop them completely in the future, which is her desire. She will continue to see her county surveyor for routine retinal exams. I will assess her urine microalbumin:Cr today. If elevated, will start lisinopril. If normal, she would not need to start lisinopril for blood pressure purposes at this time. Morbid obesity 01/24/2023 NIDDY (non-insulin dependent diabetes mellitus i n young) 11/05/2022 Assessment & Plan (10/03/2023 7:58 AM CDT): Patient is going to continue current medications, current labs were ordered, eye exam is up-to-date, foot care was discussed. Healthy diet and reference to ADA.com. Exercise as discussed, follow-up as scheduled routine. We did discuss proper monitoring of blood sugars Assessment & Plan (07/18/2023 11:36 AM DRAWBENCH OPERATOR HELPER): Patient is going to continue current medications, current labs were ordered, eye exam is up-to-date, foot care was discussed. Healthy diet and reference to ADA.com. Exercise as discussed, follow-up as scheduled routine. 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 Does not need to take lisinopril if this is the case since she does not have microalbuminuria. Assessment & Plan (09/19/2022 11:16 AM CDT): Work on diet and exercise, rtc 6-8 weeks to re-check Vaginal candidiasis 01/09/2022 Assessment & Plan (01/09/2022 10:02 AM CDT): Medications as ordered Pharyngitis 11/24/2020 Assessment & Plan (11/24/2020 7:44 AM CDT): Medrol, gargles Lymphadenopathy 11/24/2020 Assessment & Plan (11/24/2020 7:44 AM CDT): zithromax Right calf pain 10/18/2020 Overview (10/18/2020): This could be a strain but given the amount of tenderness in her calf were going to get an ultrasound rule out DVT Pyogenic granuloma 04/21/2020 Assessment & Plan (04/21/2020 12:07 PM DRAWBENCH OPERATOR HELPER): We cauterized in Jun, it is very small, discussed options including derm, will attempt LN2 Disorder of ovary 07/06/2019 Lesion of ovary 07/05/2019 Overview (07/18/2023): Other ovarian cyst, left side;Practice ID: [id number] Abnormal mammogram 06/23/2019 Abnormal uterine and vaginal bleeding, unspecifi ed 06/23/2019 Excessive and frequent menstruation with irregul ar cycle 06/23/2019 Menopausal and female climacteric states 020 Assessment & Plan (12/19/2022 10:34 AM CDT): Stable and will follow Unspecified ovarian cyst, unspecified side 06/23 Encounter for test, result negative Mass of right axilla 04/30/2019 Bleeding 04/10/2019 Overview (07/18/2023): Abnormal uterine and vaginal bleeding, unspecified;Recorded Elsewhere: No Location: [facility] Source: EHR Chronic: N Practice ID: [id number] Billable Time: 03:30:00 PM Cyst of ovary 04/07/2019 Excessive and frequent menstruation with irregul ar cycle 02/18/2019 test negative 12/30/2018 Encounter for general adult medical examination with abnormal findings 11/26/2018 Tear of right supraspinatus tendon, subsequent e ncounter 04/09/2018 Morbid obesity with BMI of 40.0-44.9, adult 11/16 Assessment & Plan (07/18/2023 11:36 AM DRAWBENCH OPERATOR HELPER): Patient is seeing endocrinology and starting mounjaro in hopes of controlling her diabetes and assisting with weight loss Assessment & Plan (12/19/2022 10:34 AM CDT): Healthy diet and exercise Assessment & Plan (09/19/2022 11:15 AM CDT): Healthy diet and exercise Other obesity due to excess calories 12/02/2017 Encntr for field marketing director exam (general) (routine) w/o abn findings 02/13/2016 Encounter for screening for malignant neoplasm o f rectum 02/13/2016 Menopause present 12/30/2015 Furuncle 12/30/2015 Benign essential hypertension 01/11/2015 Overview (07/18/2023): Hypertension, Benign;Recorded Elsewhere: No Location: [facility] Source: EHR Chronic: N Practice ID: [id number] Billable Time: 11:30:00 AM Assessment & Plan (03/04/2024 1:03 PM CDT): BP mildly elevated today. She is off lisinopril. We will monitor. Assessment & Plan (10/30/2023 2:25 PM CDT): BP is better on repeat but still slightly high. Will monitor. May need to resume lisinopril in the future if BP remains above < 130/80 on a consistent basis. Screening for malignant neoplasm of cervix 10/28 Encounter for routine gynecological examination 10/29/2011 Resolved Problems Problem Noted Date Diagnosed Date Resolved Date Obstructive sleep apnea syndrome 04/26/2020 05/24/2020 Assessment & Plan (12/19/2022 10:35 AM CDT): Never used c-pap Assessment & Plan (09/19/2022 11:15 AM CDT): No c-pap Assessment & Plan (04/26/2020 11:45 AM DRAWBENCH OPERATOR HELPER): Patient was borderline on her test she currently is not using his CPAP Boil 06/23/2019 04/21/2020 Atypical nevi 06/23/2019 04/21/2020 Sleep apnea 12/11/2017 04/21/2020 Abnormal heart rhythm 11/07/20172019 Essential hypertension 09/26/201704/21 Assessment & Plan (10/18/2020 9:58 AM CDT): Patient has never been on medications once again we had a discussion once again we have a discussion of the risks of uncontrolled blood pressure she wants to work on diet exercise and weight loss she will taking 81 mg baby aspirin follow-up in 3 months to vlad Knight 03/01/2017 04/21/2020 Immunizations Immunization Administration Dates Next Due Flucelvax Influenza Quad 08/18/2019 Influenza, Quadrivalent, Spl it, Preservative Free, Intramuscular 04/21/2020 Influenza, Unspecified 05/17/2023(Deferr ed: Patient decision),04/17/2023(Deferred: Patient Refused),03/23/2023(Deferred: Patient decision),04/22/2022(Deferred: Patient decision),04/21/2022,04/21/2022(Deferr ed: Patient decision),04/21/2021 ZOSTER Recombinant 04/21/2020,08/18/2019 Social History Tobacco Use Types Packs/Day Years Used Date Smoking Tobacco: Never Tobacco Cessation:Counseling Given: Not Answered Alcohol Use Standard Drinks/Week Comments Not Currently 0 (1 standard drink = 0.6 oz pur e alcohol) AUDIT-C Answer Date Recorded Q1: How often do you have a drink containing alc ohol? Never 10/03/2023 Average Number of Drinks Not on file 024 Frequency of Binge Drinking Not on file 09/15 PHQ-2 Answer Date Recorded PHQ-2 Total Score (If total score is 3 or more points, staff should administer the PHQ-9) 0 10/18/2023 Exercise Vital Sign Answer Date Recorde d On average, how many days pe r week do you engage in moderate to strenuous exercise (like a brisk walk)? 5 days 03/13/2023 On average, how many minutes do you engage in exercise at this level? 30 min 03/13/2023 Comments No Sex and Gender Information Value Date Recorded Sex Assigned at Not on file Legal Sex Female 1:29 AM DRAWBENCH OPERATOR HELPER Gender Identity Female 05/01/2022 11:48 AM DRAWBENCH OPERATOR HELPER Sexual Orientation Straight 05/01/2022 11 :48 AM DRAWBENCH OPERATOR HELPER Last Filed Vital Signs Vital Sign Reading Time Taken Comments Blood Pressure 145/81 03/04/2024 11:30 AM CDT Pulse 83 03/04/2024 11:30 AM CDT Temperature 37.7 C (99.8 F) 10/18/2023 7:34 AM CDT Respiratory Rate 18 10/18/2023 7:34 AM CDT Oxygen Saturation 92% 10/18/2023 7:34 AM CDT Inhaled Oxygen Concentration - - Weight 96.5 kg (212 lb 12.8 oz) 024 11:30 AM CDT Height 152.4 cm (5') 03/04/2024 11:30 AM CDT Body Mass Index 41.56 03/04/2024 11:30 AM CDT Plan of Treatment Not on file Medical Devices Implanted Type Area Blower Room Attendant Device Identifier Shelf Expiration Date Model / Serial / Lot Bard Peripheral Vascular Ultraclip Bard 17ga 10cm 2 Trigger Permanent Ultrasound [id number] - [id number] Implanted:Qty: 1 on 03/21/2023 by Nancy Moreland MD at [facility] Right: Breast Bard Peripheral Vascular [id number] / / Procedures Procedure Name Priority Date/Time Associated Diagnosis Comments XR FINGER 2ND INDEX RIGHT Schedule Routine, Read Routine (OP Routine) 09/28/2024 1:11 PM CDT Finger pain, right EGFR Routine 03/31/2024 9:39 AM CDT LIPID PANEL Routine 03/31/2024 9:39 AM CDT SCREENING MAMMOGRAM BILATERAL W SOULEYMANE Schedule Routine, Read Routine (OP Routine) 03/31/2024 8:14 AM CDT Screening mammogram, encounter for POCT HEMOGLOBIN A1C Routine 03/04/2024 1 1:56 AM CDT Type 2 diabetes mellitus without complication, without long-term current use of insulin (HCC) ALBUMIN CREATININE RATIO, URINE Routine 10/30/2023 2:02 PM CDT Type 2 diabetes mellitus without complication, without long-term current use of insulin (HCC) DIABETIC EYE EXAM Routine 11/27/2022 COLONOSCOPY Routine 03/16/2019 HEPATITIS PANEL, ACUTE Routine 06/04/2014 3:47 PM DRAWBENCH OPERATOR HELPER from Last 3 Months or Most Recently Relevant to Health Maintenance Results * XR Finger 2nd Index Right (09/28/2024 1:11 PM CDT) Anatomical Region Laterality Modality Upper Extremities, Hand, Fingers Right Computed Radiography 09/29/2024 8:04 AM CDT Narrative 09/29/2024 8:05 AM CDT EXAM DESCRIPTION: XR FINGER 2ND INDEX RIGHT REASON FOR STUDY: m79.644 Pain in joint of fingers x 1 month FINDINGS: Three views submitted without comparison. No acute fracture. Alignment is normal. 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 THIS IS AN ELECTRONICALLY VERIFIED FINAL REPORT 09/29/2024 8:05 AM - Electronically signed by Tejinder Rubin M.D. MF: MEME Report ID: [id number] Reading Location: [id number] Procedure Note Tejidner Rubin MD - 09/29/2024 EXAM DESCRIPTION: XR FINGER 2ND INDEX RIGHT REASON FOR STUDY: m79.644 Pain in joint of fingers x 1 month FINDINGS: Three views submitted without comparison. No acute fracture. Alignment is normal. 1st and 3rd metacarpophalangealand polyarticular interphalangeal joint osteoarthritis. IMPRESSION: Mild right 2nd metacarpophalangeal and polyarticular interphalangealjoint osteoarthritis. THIS IS AN ELECTRONICALLY VERIFIED FINAL REPORT 09/29/2024 8:05 AM - Electronically signed by Tejinder Rubin M.D. MF: MEME Report ID: [id number] Reading Location: [place] [address] us Alfonso MARK IMG XR PROCEDURES Final Result * eGFR (03/31/2024 9:39 AM CDT) eGFR >90 >=60 mL/min/1. 73 m2 Comment: Interpretive Data Reference Interval Normal >/= 90 mL/min/1.73m2 Mildly decreased* 60 - 89 mL/min/1.73m2 Mildly to moderately decreased 45 - 59 mL/min/1.73m2 Moderately to severely decreased 30 - 44 mL/min/1.73m2 Severely decreased 15 - 29 mL/min/1.73m2 Kidney Failure < 15 mL/min/1.73m2 *Relative to young adult level Estimated glomerular filtration rate is determined by the 2020 CKD-EPI equation recommended by the National Kidney Foundation (A Unifying Approach to GFR Estimation: Recommendations of the NKF-ASK Task Force on Reassessing the Inclusion of Race in Diagnosing Kidney Disease, JASN 2020). The CKD-EPI equation should not be used for patients with unstable renal function and has not been validated in children and those over 70. Current interpretive data was last reviewed 2021. Testing performed by: [facility], [address] [place] [address]., [address] Blood 03/31/2024 9:39 AM CDT 03/31/2024 11:00 AM CDT us Edwin Godoy DO LAB BLOOD ORDERABLES Fin al Result YHOEOD [address] [facility] Department [place] [address] * Lipid panel (03/31/2024 9:39 AM CDT) Cholesterol 185 30 - 199 mg/dL Comment: Interpretive Data Ages < or = 19 years Acceptable: <170 mg/dL Borderline high: 170-199 mg/dL High: >or= 200 mg/dL Ages > or = 20 years Desirable: <200 mg/dL Borderline high: 200-239 mg/dL High: >or= 240 mg/dL Literature References: 1. Expert Panel on Integrated Guidelines for Cardiovascular Health and Risk Reduction in Children and Adolescents. Pediatrics 2011;128:S213 2. NCEP Expert Panel. Circulation 2004;110:227 Current Interpretive Data was last revised on 2018. Testing performed by: [address] [address] Triglycerides 70 <=149 mg/dL KIRSTIE Comment: Interpretive Data Ages < or = 9 years Acceptable: <75 mg/dL Borderline high: 75-99 mg/dL High: >or= 100 mg/dL Ages 10 to 20 years Acceptable: <90 mg/dL Borderline high: 90-129 mg/dL High: >or= 130 mg/dL Ages > or = 20 years Desirable: <150 mg/dL Borderline high: 150-199 mg/dL High: 200-499 mg/dL Very high: >or= 499 mg/dL Literature References: 1. Expert Panel on Integrated Guidelines for Cardiovascular Health and Risk Reduction in Children and Adolescents. Pediatrics 2011;128:S213 2. NCEP Expert Panel. Circulation 2003;110:227 Current Interpretive Data was last revised on 2018. Testing performed by: [address] [address] HDL 47 >=40 mg/dL KIRSTIE Comment: Interpretive Data Ages < or = 19 years Acceptable: >45 mg/dL Borderline low: 40-45 mg/dL Low: <40 mg/dL Ages > or = 20 years Desirable: >or= 60 mg/dL Low: <40 mg/dL Literature References: 1. Expert Panel on Integrated Guidelines for Cardiovascular Health and Risk Reduction in Children and Adolescents. Pediatrics 2011;128:S213 2. NCEP Expert Panel. Circulation 2004;110:227 Current Interpretive Data was last revised on 2018. Testing performed by: [address] [address] LDL, calculated 125 <=129 mg/dL KIRSTIE MELGAR Comment: Interpretive Data Ages < or = 19 years Acceptable: <110 mg/dL Borderline high: 110-129 mg/dL High: >or= 130 mg/dL Ages > or = 20 years Optimal: <100 mg/dL Near optimal: 100-129 mg/dL Borderline high: 130-159 mg/dL High: >160 mg/dL Calculated using the Francisco LDL-C estimating equation. This equation was implemented on 2024. Prior to this date LDL-C was estimated using the Friedewald equation. Literature References: 1. Expert Panel on Integrated Guidelines for Cardiovascular Health and Risk Reduction in Children and Adolescents. Pediatrics 2011;128:S213 2. NCEP Expert Panel. Circulation 2004;110:227 3. Francisco Villarreal et al. JUDE Cardiol. 2019October 15;5(5):540-548. doi: 10.1001/jamacardio.2020.0013 Current Interpretive Data was last revised on 2024. Testing performed by: [address] [address] Non-HDL Cholesterol 138 mg/dL KIRSTIE Comment: Interpretive Data Ages < or = 19 years Acceptable: <120 mg/dL Borderline high: 120-144 mg/dL High: >145 mg/dL Ages > or = 20 years When triglycerides are >200 mg/dL, Non-HDL cholesterol is a secondary target of therapy with treatment goals that are 30 mg/dL greater than the LDL cholesterol target. Literature References: 1. Expert Panel on Integrated Guidelines for Cardiovascular Health and Risk Reduction in Children and Adolescents. Pediatrics 2011;128:S213 2. NCEP Expert Panel. Circulation 2004;110:227 Current Interpretive Data was last revised on 2018. Testing performed by: [address] [address] Chol/HDL ratio 4 KIRSTIE Comment:Testing performed by : [address] [address] Blood 03/31/2024 9:39 AM CDT 03/31/2024 11:00 AM CDT Edwin Godoy DO LAB BLOOD ORDERABLES Fin al Result KIRSTIE [address] [facility] Department of Laboratories [place], [place] [id number] * Screening Mammogram Bilateral W Souleymane (03/31/2024 8:14 AM CDT) Anatomical Region Laterality Modality Breast Bilateral Mammography Narrative 04/01/2024 1:00 PM CDT Mammogram Technique: Bilateral Digital Breast Tomosynthesis, Bilateral C-view 2D Screening mammogram. Views obtained: bilateral craniocaudal and bilateral mediolateral oblique. Computer Aided Detection was performed. Mammogram Findings: The present examination has been compared to prior imaging studies performed at [facility] on 03/12/2023, at [place], [place] on 09/10/2022, and at [facility] on 09/06/2021. There are scattered areas of fibroglandular density. There is no suspicious abnormality in either breast. Impression: There is no mammographic evidence of malignancy. Annual screening mammography is recommended. OVERALL FINAL ASSESSMENT: BI-RADS CATEGORY 1: Negative. Procedure Note Elizabeth Bell MD - 04/01/2024 Mammogram Technique: Bilateral Digital Breast Tomosynthesis, Bilateral C-view 2D Screening mammogram. Views obtained: bilateral craniocaudal and bilateral mediolateral oblique. Computer Aided Detection was performed. Mammogram Findings: The present examination has been compared to prior imaging studies performed at [facility] on 03/12/2023, at [place], [place] on 09/10/2022, and at [facility] on 09/06/2021. There are scattered areas of fibroglandular density. There is no suspicious abnormality in either breast. Impression: There is no mammographic evidence of malignancy. Annual screening mammography is recommended. OVERALL FINAL ASSESSMENT: BI-RADS CATEGORY 1: Negative. us Self Screening Mammogram IMG MAMMO PROCEDURES Fi nal Result * POCT hemoglobin A1c (03/04/2024 11:56 AM CDT) Pathologist [facility] Hemoglobin A1C, POC 6.0 4.0 - 5.6 % Blood 03/04/2024 11:5 6 AM CDT Bunny Seymour MD POINT OF CARE TEST ORDMarilee PALOMINO Final Result * Albumin Creatinine Ratio, Urine (10/30/2023 2:02 PM CDT) Pathologist [facility] Creatinine ur 109.4 Not Estab. mg/dL [facility] - 01 Microalbumin, ur 11.5 Not Estab. ug/mL [facility] - 01 Microalbumin/cre at ratio 11 0 - 29 mg/g creat [facility] - 01 Comment: Normal: 0 - 29 Moderately increased: 30 - 300 Severely increased: >300 Urine 10/30/2023 2:02 PM CDT 10/30/2023 Narrative [facility] - 10/31/2023 10:11 AM CDT Performed at: [facility] [id number] Local Sales Associate: Denilson Espino PhD, Phone: [phone] Bunny Seymour MD LAB URINE ORDERABLES Fi nal Result [facility] - 01 * Diabetic Eye Exam (11/27/2022) Historical Provider HEALTH MAINTENANCE Final Result * Colonoscopy (03/16/2019) Anatomical Region Laterality Modality Other Historical Provider ENDOSCOPY PROCEDURES Anum l Result * Hepatitis panel, acute (06/04/2014 3:47 PM DRAWBENCH OPERATOR HELPER) Pathologist [facility] HepBsAg NONREACT NONREACTIVE 06/04/2014 6:19 PM DRAWBENCH OPERATOR HELPER [facility] HISTORICAL RESULTS Comment: Siemens EyeTechCareaurXP using LENNY (chemiluminescent immunoassay) technology. NONREACTIVE: IgM antibodies to Hepatitis B Surface antigen not detected. REACTIVE: IgM antibodies to Hepatitis B Surface antigen detected. Reactive results will be confirmed by neutralization testing. HBsAb (immune status) NONREACT NONREACTIVE 06/04/2014 6:19 PM DRAWBENCH OPERATOR HELPER [facility] HISTORICAL RESULTS Comment: Siemens CentaurXP using LENNY (chemiluminescent immunoassay) technology. NONREACTIVE: IgM antibodies to Hepatitis B Surface antibody not detected. REACTIVE: IgM antibodies to Hepatitis B Surface antibody detected. Hep B core IgM NONREACT NONREACTIVE 4 7:04 PM DRAWBENCH OPERATOR HELPER [facility] HISTORICAL RESULTS Comment: Siemens CentaurXP using LENNY (chemiluminescent immunoassay) technology. NONREACTIVE: IgM antibodies to Hepatitis B Core antigen not detected. EQUIVOCAL: IgM antibodies to Hepatitis B Core antigen may or may not be present. Obtain a new specimen and retest. REACTIVE: IgM antibodies to Hepatitis B Core antigen detected. Hep A IgM NONREACT NONREACTIVE 06/04/2014 7:04 PM DRAWBENCH OPERATOR HELPER [facility] [employer] [facility] HISTORICAL RESULTS Comment: Siemens CentaurXP using LENNY (chemiluminescent immunoassay) technology. NONREACTIVE: IgM antibodies to Hepatitis A not detected. This does not exclude possibility of exposure to Hepatitis A or early acute infection. EQUIVOCAL:IgM antibodies to Hepatitis A may or may not be present. Suggest recollection and retest. REACTIVE: Antibodies to Hepatitis A detected. Hep C Ab NONREACT NONREACTIVE 06/04/2014 7:04 PM DRAWBENCH OPERATOR HELPER [facility] [employer] [facility] HISTORICAL RESULTS Comment: Siemens CentaurXP using LENNY (chemiluminescent immunoassay) technology. NONREACTIVE: Antibodies to Hepatitis C not detected. This does not exclude early acute Hepatitis C infection, possibility of exposure to Hepatitis C, antibodies below detection limit, or to lack of antibody reactivity to the antigen used in this assay. EQUIVOCAL: Antibodies to Hepatitis C may or may not be present. Sample to be confirmed by real-time PCR method. REACTIVE: Antibodies to Hepatitis C detected. 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 [place] [address] [facility] [address] [address] [facility] [place] [address] [facility] [employer] Care Teams Creative Art Therapist Relationship Specialty Start Date End Date Alfonso Butt PA PCP - General Family Medicine 11/26/18 Mirella Og NP Nurse Practitioner Obstetrics and Gynecology 09/10/22
--- OUTSIDE RECORDS SUMMARY | 2024-11-24 01:28 | XMS_ITS | Data Portability ---
Author Organization [facility] Address [address] [place] [address] Care Team Providers Care Correctional Treatment Specialist Name Role Phone ANDREW MALLORY Primary Care Provider Assessment Encounter Date Assessment Date Assessment LastModified by Organization Details LastModified Time 09/10/2023 09/10/2023 Annual gynecological exam performed. Patient will come back in a year unless there are new symptoms. [email or web address] Not available 09/09/2023 17:16:13 09/21/2024 09/21/2024 Annual gynecological exam performed. Patient will come back in a year unless there are new symptoms. [email or web address] Not available 09/21/2024 10:28:12 Plan of Treatment Reminders Order Date Submit Date Provider Last Modified By Organization Details Last Modified Time Details Appointments SURG Hysterosc opy 2024 09:00A Phil HEREDIA MD Not available Not available Not available SURG POST OP 2024 08:30A Phil HEREDIA MD Not available Not available Not available Lab pap, IG + HR HPV - HPV regardles s but if HPV is positive need subtyping 16,18/45 2024 025 [facility] (Lab), [address], [place], [address], 09/23/2024 14:04:42 HbA1c (hemoglob in A1c), blood 2022 023 [facility] (Lab), [address] [place], [address], 10/20/2022 06:18:23 lipid panel, blood 2022 023 [facility] (Lab), [address], [place], [address], 10/20/2022 06:18:21 vitamin D, 25-hydrox y, total, serum 2022 023 [facility] (Lab), [address], [place], [address], 10/20/2022 06:18:23 CMP, serum or plasma 2022 023 [facility] (Lab), [address], [place], [address], 10/20/2022 06:18:22 CBC w/ auto diff 2022 023 [facility] (Lab), [address], [place], [address], 10/20/2022 06:18:22 TSH, serum or plasma 2022 023 [facility] (Lab), [address], [place], [address], 10/20/2022 06:18:22 Referral None recorded. Procedures None recorded. Surgeries dilation and curettage with hysterosc opy (SURG) [address] [facility], [address] [address], [place], [address], 11/06/2024 12:27:44 Imaging US, pelvis 2024 025 [email or web address] [place], [address], [address], [place], [address], 09/22/2024 21:29:37 US, transvagi nal 2024 025 [email or web address] [place], [address], [address], [place], [address], 09/22/2024 21:29:37 US, pelvis, complete 2024 025 [email or web address] [place], [address], [place], [address], 09/28/2024 18:56:05 US, pelvis, complete 2023 024 [facility] [place], [address], [place], [address], 03/15/2024 05:01:18 Medication Orders None recorded. Patient TargetsNo targets recorded. Patient InstructionsNo instructions recorded. Reason for Referral None Reported. Results Created Date Observation Date Name Description Value Unit Range Abnormal Flag Note LastModifiedBy Organization Detail LastModifiedTime 10/20/1910/19/2022 LIPID PANEL ,AMA (LDL- CALC) total cholesterol 219 mg/dL 0-199 high Not Available [facility] (Lab) [address] [place], [address], 10/20/2022 06:18:21 10/20/1910/19/2022 LIPID PANEL ,AMA (LDL- CALC) triglyceride s 96 mg/dL 0.00-1 50.00 NCEP Refer ence Value s for Trigl yceri raymond: Christina l: <150 mg/dL Borde rline High: 150 - 199 mg/dL High: 200 - 499 mg/dL Very High: >/= 500 mg/dL Not Available [facility] (Lab) [address], [place], [address], 10/20/2022 06:18:21 10/20/1910/19/2022 LIPID PANEL ,AMA (LDL- CALC) HDL cholesterol 49 mg/dL >40 Not Available [facility] (Lab) [address] [place], [address], 10/20/2022 06:18:21 10/20/1910/19/2022 LIPID PANEL ,AMA (LDL- CALC) LDL cholesterol 150 mg/dL 0-99 high Cutof f value s recom francia d by the Natio nal Marce stero l Educa tion Progr am: NITHIN ABLE: Marce stero l <200 mg/dL LDL <100 mg/dL BORDE RLINE : Marce stero l 200-2 39 mg/dL LDL 101-1 59 mg/dL HIGHE R RISK: Marce stero l >240 mg/dL LDL >160 mg/dL , HDL <40 mg/dL Not Available [facility] (Lab) [address], [place], [address], 10/20/2022 06:18:21 10/20/1910/19/2022 LIPID PANEL ,AMA (LDL- CALC) non-HDL cholesterol 170 mg/dL no refere nce range A reaso nable goal for non-H DL marce stero l is one that is 30 mg/dL highe r than the LDL marce stero l goal. Not Available [facility] (Lab) [address], [place], [address], 10/20/2022 06:18:21 10/20/1910/19/2022 LIPID PANEL ,AMA (LDL- CALC) chol/HDL ratio 4.5 . 0.0-5. 0 On October 09, 2022, [facility] labor atori carolin coulter ed the equat ion for calcu latin g estim ated low-d ensit y lipop rotei n-cho leste rol (LDL- C) from the Fried celeste equat ion to the Jade fernandez/David aguilera equat ion. This new equat ion is only valid for lipid panel s with trigl yceri raymond < 400 mg/dL . Studi es have demon strat ed that this new equat ion will impro ve the accur acy of LDL-C , espec ially in scena storm when LDL-C alexander ntrat ions are relat ively low (< 100 mg/dL ), trigl yceri raymond are eleva maxx, or patie nt is non-f astin g. Refer ences : - Ishaan Reynolds, Perry Vigil , Guille wahl, Ajay Adams, Ajay viera, Paramjit núñez , and Juwan Dixon . 2013. Comp ariso n of a Novel Metho d vs the Fried celeste Equat ion for Estim ating Low-D ensit y Lipop rotei n Marce stero l Level s from the Stand geneva Lipid Profkinsey le. JUDE: The Journ al of the Ameri can Medic al Assoc iatio n 310 (19): 2060- . - Yadira paredes V, Lorna J, Ranjana paredes A, Susi M, Ramirez e R, Mario paredes E, Raul núñez RS, Zack SR, Jade fernandez SS. Fast ing Versu s Nonfa sting and Low-D ensit y Lipop rotei n Marce stero l Accur acy. Circu latio n. 2017Jun 18;137 (1):1 0-19. Not Available [facility] (Lab) [address] [place], [address], 10/20/2022 06:18:21 10/20/19 23 10/19/2022 CMP(C OMPRE HENSI VE METAB OLIC PANEL ) sodium 136 mmol/ L 133-14 6 Not Available [facility] (Lab) [address] [place], [address], 10/20/2022 06:18:21 10/20/19 23 10/19/2022 CMP(C OMPRE HENSI VE METAB OLIC PANEL ) potassium 4.3 mmol/ L 3.5-5. 1 Not Available [facility] (Lab) [address] [place], [address], 10/20/2022 06:18:21 10/20/19 23 10/19/2022 CMP(C OMPRE HENSI VE METAB OLIC PANEL ) chloride 101 mmol/ L 98-107 Not Available [facility] (Lab) [address] [place], [address], 10/20/2022 06:18:21 10/20/19 23 10/19/2022 CMP(C OMPRE HENSI VE METAB OLIC PANEL ) carbon dioxide 26 mmol/ L 21-31 Not Available [facility] (Lab) [address] [facility], [place], [address], 10/20/2022 06:18:21 10/20/19 23 10/19/2022 CMP(C OMPRE HENSI VE METAB OLIC PANEL ) anion gap 9 mmol/ L 4-13 Not Available [facility] (Lab) [address] [facility] [address], [place], [address], 10/20/2022 06:18:21 10/20/19 23 10/19/2022 CMP(C OMPRE HENSI VE METAB OLIC PANEL ) blood urea nitrogen 11 mg/dL 7-[address] [facility] (Lab) [address], [place], [address], 10/20/2022 06:18:21 10/20/19 23 10/19/2022 CMP(C OMPRE HENSI VE METAB OLIC PANEL ) creatinine 0.66 mg/dL 0.60-1 .30 Not Available [facility] (Lab) [address], [place], [address], 10/20/2022 06:18:21 10/20/19 23 10/19/2022 CMP(C OMPRE HENSI VE METAB OLIC PANEL ) egfrcr (CKD-epi 2020) >90 mL/mi n/1.7 3_m2 >=60 Not Available [facility] (Lab) [address], [place], [address], 10/20/2022 06:18:21 10/20/19 23 10/19/2022 CMP(C OMPRE HENSI VE METAB OLIC PANEL ) calcium 9.0 mg/dL 8.3-10 .5 Not Available [facility] (Lab) [address], [place], [address], 10/20/2022 06:18:21 10/20/19 23 10/19/2022 CMP(C OMPRE HENSI VE METAB OLIC PANEL ) glucose 322 mg/dL 70-100 high Not Available [facility] (Lab) [address], [place], [address], 10/20/2022 06:18:21 10/20/19 23 10/19/2022 CMP(C OMPRE HENSI VE METAB OLIC PANEL ) protein, total 6.9 g/dL 6.4-8. 3 Not Available [facility] (Lab) [address], [place], [address], 10/20/2022 06:18:21 10/20/19 23 10/19/2022 CMP(C OMPRE HENSI VE METAB OLIC PANEL ) albumin 3.9 g/dL 3.5-5. 0 Not Available [facility] (Lab) [address], [place], [address], 10/20/2022 06:18:21 10/20/19 23 10/19/2022 CMP(C OMPRE HENSI VE METAB OLIC PANEL ) ALT 11 units /L 9-43 Not Available [facility] (Lab) [address], [place], [address], 10/20/2022 06:18:21 10/20/19 23 10/19/2022 CMP(C OMPRE HENSI VE METAB OLIC PANEL ) alkaline phosphatase 86 units /L 34-104 Not Available [facility] (Lab) [address] [place], [address], 10/20/2022 06:18:21 10/20/19 23 10/19/2022 CMP(C OMPRE HENSI VE METAB OLIC PANEL ) AST 10 units /L 13-39 low Not Available [facility] (Lab) [address], [place], [address], 10/20/2022 06:18:21 10/20/19 23 10/19/2022 CMP(C OMPRE HENSI VE METAB OLIC PANEL ) bilirubin, total 0.5 mg/dL 0.2-1. 2 Not Available [facility] (Lab) [address], [place], [address], 10/20/2022 06:18:21 10/20/19 23 10/19/2022 TSH, REFLE X FREE T4 TSH 1.23 uIU/m L 0.30-5 .33 Not Available [facility] (Lab) [address], [place], [address], 10/20/2022 06:18:22 10/20/19 23 10/19/2022 CBC W/DIF F WBC 5.5 10'3/ uL 3.6-10 .2 Not Available [facility] (Lab) [address], [place], [address], 10/20/2022 06:18:22 10/20/19 23 10/19/2022 CBC W/DIF F RBC 4.93 10'6/ uL (based on docume nted legal sex) 4.10-5 .30 Not Available [facility] (Lab) [address], [place], [address], 10/20/2022 06:18:22 10/20/19 23 10/19/2022 CBC W/DIF F HGB 14.4 g/dL (based on docume nted legal sex) 11.9-1 5.8 Not Available [facility] (Lab) [address], [place], [address], 10/20/2022 06:18:22 10/20/19 23 10/19/2022 CBC W/DIF F HCT 45.0 % (based on docume nted legal sex) 37.4-4 8.3 Not Available [facility] (Lab) [address] [place], [address], 10/20/2022 06:18:22 10/20/19 23 10/19/2022 CBC W/DIF F MCV 91.3 fL 82.0-9 9.0 Not Available [facility] (Lab) [address] [place], [address], 10/20/2022 06:18:22 10/20/19 23 10/19/2022 CBC W/DIF F MCH 29.2 pg 27.0-3 3.0 Not Available [facility] (Lab) [address], [place], [address], 10/20/2022 06:18:22 10/20/19 23 10/19/2022 CBC W/DIF F MCHC 32.0 g/dL 32.0-3 6.0 Not Available [facility] (Lab) [address], [place], [address], 10/20/2022 06:18:22 10/20/19 23 10/19/2022 CBC W/DIF F RDW 12.8 % 11.0-1 5.0 Not Available [facility] (Lab) [address], [place], [address], 10/20/2022 06:18:22 10/20/19 23 10/19/2022 CBC W/DIF F plt 254 10'3/ uL 150-45 0 Not Available [facility] (Lab) [address], [place], [address], 10/20/2022 06:18:22 10/20/19 23 10/19/2022 CBC W/DIF F MPV 11.8 fL 9.8-12 .7 Not Available [facility] (Lab) [address], [place], [address], 10/20/2022 06:18:22 10/20/19 23 10/19/2022 CBC W/DIF F NRBC's 0.0 % 0 Not Available [facility] (Lab) [address], [place], [address], 10/20/2022 06:18:22 10/20/19 23 10/19/2022 CBC W/DIF F absolute NRBCs 0.0 10'3/ uL 0 Not Available [facility] (Lab) [address], [place], [address], 10/20/2022 06:18:22 10/20/19 23 10/19/2022 CBC W/DIF F neutrophils 48.2 % 37.0-7 2.0 Not Available [facility] (Lab) [address], [place], [address], 10/20/2022 06:18:22 10/20/19 23 10/19/2022 CBC W/DIF F lymphocytes 42.1 % 16.0-4 8.0 Not Available [facility] (Lab) [address], [place], [address], 10/20/2022 06:18:22 10/20/19 23 10/19/2022 CBC W/DIF F monocytes 7.3 % 4.0-14 .0 Not Available [facility] (Lab) [address] [place], [address], 10/20/2022 06:18:22 10/20/19 23 10/19/2022 CBC W/DIF F eosinophils 1.5 % 0.0-9. 0 Not Available [facility] (Lab) [address] [place], [address], 10/20/2022 06:18:22 10/20/19 23 10/19/2022 CBC W/DIF F basophils 0.7 % 0.0-2. 0 Not Available [facility] (Lab) [address] [facility] [address], [place], [address], 10/20/2022 06:18:22 10/20/19 23 10/19/2022 CBC W/DIF F immature granulocytes 0.2 % no define d refere nce range Not Available [facility] (Lab) [address] [place], [address], 10/20/2022 06:18:22 10/20/19 23 10/19/2022 CBC W/DIF F absolute neutrophils 2.6 10'3/ uL 1.1-6. 0 Not Available [facility] (Lab) [address] [facility] [address], [place], [address], 10/20/2022 06:18:22 10/20/19 23 10/19/2022 CBC W/DIF F absolute lymphocytes 2.3 10'3/ uL 0.7-3. 4 Not Available [facility] (Lab) [address] [facility] [address], [place], [address], 10/20/2022 06:18:22 10/20/19 23 10/19/2022 CBC W/DIF F absolute monocytes 0.4 10'3/ uL 0.3-1. 0 Not Available [facility] (Lab) [address] [facility] [address], [place], [address], 10/20/2022 06:18:22 10/20/19 23 10/19/2022 CBC W/DIF F absolute eosinophils 0.1 10'3/ uL 0.0-0. 6 Not Available [facility] (Lab) [address] [facility] [address], [place], [address], 10/20/2022 06:18:22 10/20/19 23 10/19/2022 CBC W/DIF F absolute basophils 0.0 10'3/ uL 0.0-0. 1 Not Available [facility] (Lab) [address] [place], [address], 10/20/2022 06:18:22 10/20/19 23 10/19/2022 CBC W/DIF F absolute immature granulocytes 0.0 10'3/ uL 0.00-0 .10 023 2:22 AM: P indic ates parti al resul ts on a panel have been relea sed. Addit ional resul ts will follo w. 023 2:22 AM: This resul t has been final verif ied. No addit ional or coulter ed resul ts are expec maxx. Not Available [facility] (Lab) [address], [place], [address], 10/20/2022 06:18:22 10/20/19 23 10/19/2022 VITAM IN D, 25-OH (TOTA L D2/D3 ) vitamin D, 25-hydroxy, total 15.4 NG/mL 30.0-1 00.0 low Sugge stive of Defic iency : <20 ng/mL Sugge stive of Insuf ficie ncy: 20-29 ng/mL Sugge stive of Suffi cienc y: 30-10 0 ng/mL Sugge stive of Toxic ity: >150 ng/mL Not Available [facility] (Lab) [address], [place], [address], 10/20/2022 06:18:23 10/20/1910/19/2022 HEMOG LOBIN A1C hemoglobin A1C 14.7 % 0-5.6 high The Ameri can Diabe abdullahi Assoc iatio n recom mends that a prima ry goal of thera py jody d be a HBA1C of < 7% and that physi cians shoul d reeva luate the treat ment regim en in patie nts with HBA1C value s consi stent ly > 8%. <5.7% Christina l 5.7 - 6.4% Incre ased risk for diabe abdullahi >=6.5 % Diagn ostic of diabe abdullahi <7.0% Goal of thera py >8.0% Actio n sugge sted Not Available [facility] (Lab) [address], [place], [address], 10/20/2022 06:18:23 02/16/2002/15/2023 VITAM IN D, 25-OH (TOTA L D2/D3 ) vitamin D, 25-hydroxy, total 27.8 NG/mL 30.0-1 00.0 low Sugge stive of Defic iency : <20 ng/mL Sugge stive of Insuf ficie ncy: 20-29 ng/mL Sugge stive of Suffi cienc y: 30-10 0 ng/mL Sugge stive of Toxic ity: >150 ng/mL Not Available [facility] (Lab) [address], [place], [address], 02/16/2023 03:33:52 09/10/19 24 09/10/2023 IMAGE GUIDE D PAP AND HPV REGAR DLESS image guided Pap, HPV regardless of Pap result SEE RESULT S BELOW abnormal CASE REPOR T: Cytol ogy Gynec ologi rosalind Repor t Case: 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 Elect opal leung ben d by Jeff Taylor MD on 2023 at 3:17 PM ----- ----- ----- ----- ----- ----- ----- ----- ----- ----- ----- ----- ----- ----- ----- ----- ----- ---- HPV RESUL TS: HPV mRNA E6/E7 : No HPV mRNA Detec maxx NOTE: This high risk HPV mRNA assay detec ts fourt een high- risk HPV types (16, 18, 31, 33, 35, 39, 45, 51, 52, 56, 58, 59, 66, 68) witho ut diffe renti ation . COMME NT: This speci men was revie wed by a Cytot echno logis t and/o r Patho logis t (as indic ated in this repor t) after evalu ation using the Thinp rep Imagi ng Syste m. CLINI ROSALIND INFOR MATIO N: Menst rual Statu s: LMP (if appli cable ): Clini rosalind Histo ry/Pr eviou s Pap: Type of Neopl mg (if appli cable ): Signi fican t Clini rosalind Findi ngs: Other Histo ry: Hormo emi (if appli cable ): ECHO [place] FOLLO W-UP: Follo w up as warra nted, based on curre nt guide lines and indiv idual patie nt consi derat ions. 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 ----- ----- ----- ----- ----- ----- ----- ----- ----- ----- ----- ----- ----- ----- ----- ----- ----- ---- FINAL DIAGN OSIS: Negat vickie for Intra epith elitory fernandez or Светлана parisi (NIL) . Elect ronak leung ben d by Eduarda Dixon ay, CT on 025 at 1300 CDT ----- ----- ----- ----- ----- ----- ----- ----- ----- ----- ----- ----- ----- ----- ----- ----- ----- ---- HPV RESUL TS: HPV mRNA E6/E7 : No HPV mRNA Detec maxx NOTE: This high risk HPV mRNA assay detec ts fourt een high- risk HPV types (16, 18, 31, 33, 35, 39, 45, 51, 52, 56, 58, 59, 66, 68) witho ut diffe renti ation . COMME NT: This speci men was revie wed by a Cytot echno logis t and/o r Patho logis t (as indic ated in this repor t) after evalu ation using the Thinp rep Imagi ng Syste m. CLINI ROSALIND INFOR MATIO N: Menst rual Statu s: LMP (if appli cable ): Clini rosalind Histo ry/Pr eviou s Pap: Type of Neopl mg (if appli cable ): Signi fican t Clini rosalind Findi ngs: Other Histo ry: Hormo emi (if appli cable ): PAP EDUCA BRENDA L NOTE: The Pap Test is a scree edil test with an inher ent false negat vickie rate. Liqui d-bas ed sampl ing may decre ase, but will not elimi mg, false negat vickie resul ts. A negat vickie resul t does not precl ude the prese nce and/o r devel opmen t of disea se, since the prese nce of abnor mal cells in the sampl e depen ds on the locat ion of the lesio n and sampl ing techn ique. Lalita nued regul ar scree edil is the best metho d of cance r preve ntion . If repor maxx cytol ogic findi ng do not corre late with physi rosalind and/o r histo rical findi ngs, furth er inves tigat ion is isabela knox, as supriyai cristal cooked. 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 Elect opal knox by Serafin Patricio MD on 2024 at 0957 CDT ----- ----- ----- ----- ----- ----- ----- ----- ----- ----- ----- ----- ----- ----- ----- ----- ----- ---- CLINI ROSALIND INFOR MATIO N: Abnor mal uteri ne bleed ing MICRO SCOPI C DESCR IPTIO N: A micro scopi c exami natio n was perfo rmed. GROSS DESCR IPTIO N: A. Endom etriu m. The speci men is label ed with the patie nt's name, demog raphi cs and EMB . Recei max in forma dexter is a 1.0 x 0.6 x 0.[address] of mucus and minut e white tissu e. The entir e speci men is submi tted in one casse tte. Gross ed by Wayne Mccain on Not Available [facility] (Lab) [address] [facility], [place], [address], 11/04/2024 11:03:48 09/26/19 23 09/25/2022 MAMMO , diagn ostic , digit al, bilat eral No observ ation record ed. [address] , [place], [address], 09/26/2022 13:47:49 09/26/19 23 09/25/2022 , tyson t, bilat eral No observ ation record ed. [address] , [place], [address], 09/26/2022 13:47:49 03/12/20 23 03/12/2023 MAMMO , diagn ostic , digit al, bilat eral No observ ation record ed. [address], [address], 03/14/2023 14:54:04 03/12/20 23 03/12/2023 , tyson t, bilat eral No observ ation record ed. [address], [address], 03/14/2023 14:54:04 03/21/20 23 03/21/2023 biops y, tyson t, w/ ultra sound maria del carmen nce (PROC ) No observ ation record ed. [email or web address] [address], [address], 04/08/2023 17:14:46 03/21/20 23 03/21/2023 biops y, breas t, w/ ultra sound maria del carmen nce (PROC ) No observ ation record ed. [email or web address] [facility] [address] [place], [address], 04/08/2023 17:15:44 03/25/20 23 03/21/2023 biops y, breas t (PROC ) No observ ation record ed. [email or web address] [facility] [address] [place], [address], 04/08/2023 17:18:46 03/25/2003/21/2023 biops y, breas t (PROC ) No observ ation record ed. [email or web address] [address], [address], 04/08/2023 17:19:11 04/01/2003/31/2024 MAMMO , scree edil, bilat eral No observ ation record ed. [address], [address], 04/06/2024 11:52:34 09/23/19 25 09/22/2024 US, pelvi s No observ ation record ed. [facility] [address], [place], [address], 09/22/2024 17:29:20 09/23/19 25 09/22/2024 US, trans vagin al No observ ation record ed. [facility] [address], [place], [address], 09/22/2024 17:29:29 09/23/19 25 09/22/2024 US, pelvi s No observ ation record ed. [email or web address] [address], [place], [address], 10/07/2024 18:24:38 09/30/19 25 09/28/2024 imagi ng inter preta tion No observ ation record ed. [email or web address] [facility] [address] [place], [address], 09/29/2024 19:01:40 Result Notes None recorded. Problems Name Problem SNOMED Code Status Onset Date Resolution Date Notes Provider Name and Address Organization Details Recorded Time Screenin g for malignan t neoplasm of rectum Completed 201102/23/2021 Screenin g for malignan t neoplasm s of the rectum;R ecorded Elsewher e: No Locat ion: [facility] S ource: [employer] pete: N Practi ce ID: [id number] Kevin lable Time: 03:00:00 PM [facility] 1 16:19:17 Furuncle [id number] Active 2015 Boil;Rec orded Elsewher e: No Locat ion: [facility] S ource: [employer] pete: N Practi ce ID: [id number] Kevin lable Time: 02:15:00 PM Not Available [facility] 0 19:01:01 Speciali zed medical examinat ion Completed 201102/23/2021 Gynecolo gical Examinat ion;Cayden rded Elsewher e: No Locat ion: [facility] S ource: [employer] pete: N Practi ce ID: [id number] Kevin lable Time: 03:00:00 PM [facility] 1 16:19:14 Bleeding [id number] Completed 201802/23/2021 Abnormal uterine and vaginal bleeding , unspecif ied;Cayden rded Elsewher e: No Locat ion: [facility] S ource: [employer] Manager pete: N Practi ce ID: 0001 Kevin lable Time: 03:30:00 PM [facility] 1 16:18:[address] Concept Completed 201802/23/2021 Encntr for general adult medical exam w/o abnormal findings ;Recorde d Elsewher e: No [facility]: [employer] Manager pete: N Practi ce ID: 0001 Kevin lable Time: 01:30:00 PM [facility] 1 16:19:09 Screenin g for malignan t neoplasm of cervix Completed 201202/23/2021 Screenin g for malignan t neoplasm s of the cervix;R ecorded Elsewher e: No [facility] S ource: [employer] Manager pete: N Practi ce ID: 0001 Kevin lable Time: 03:00:00 PM [facility] 1 16:19:06 Cyst of ovary Active 2018 Unspecif ied ovarian cyst, unspecif ied side;Rec orded Elsewher e: No [facility]: [employer] Manager pete: N Practi ce ID: 0001 Kevin lable Time: 02:12:06 PM Not Available [facility] 0 19:01:[address] Concept Completed 201702/23/2021 Encntr for obstetrics and gynecology professor exam (general ) (routine ) w/o abn findings ;Recorde d Elsewher e: No [facility] ource: [employer] Manager pete: N Practi ce ID: 0001 Kevin lable Time: 02:30:00 PM Merlinedarion Sanchez [facility] 1 16:19:11 Menopaus e present [id number] Active 2015 Symptoms such as flushing , sleeples sness, headache , lack of concentr ation, associat ed with natural (age-rel ated) menopaus e;Record ed Elsewher e: No [facility] ource: [employer] Manager pete: N Practi ce ID: 0001 Kevin lable Time: 02:15:00 PM Not Available [facility] 0 19:01:01 Pregnanc y test negative [id number] Completed 201802/23/2021 Encounte r for pregnanc y test, result negative ;Recorde d Elsewher e: No [facility] ource: [employer] Manager pete: N Practi ce ID: 0001 Kevin lable Time: 10:30:00 AM [facility] 1 16:19:03 Finding of pattern of menstrua l cycle [id number] Completed 201802/23/2021 Excessiv e and frequent menstrua tion with irregula r cycle;Re corded Elsewher e: No Locat ion: [facility] S ource: [employer] Manager pete: N Practi ce ID: 0001 Kevin lable Time: 03:00:00 PM Merline Sanchez [facility] 1 16:18:38 Lesion of ovary Active 2019 Other ovarian cyst, left side;Pra ctice ID: 0001 Not Available [facility] 0 19:01:02 Morbid obesity 630723807 Active 2014 Morbid obesity; Practice ID: 0001 Not Available [facility] 0 19:01:03 Clinical finding Completed 201802/23/2021 Abnormal findings on dx imaging of oth body structur es;Recor ded Elsewher e: No Locat ion: [facility] S ource: [employer] Manager pete: N Practi ce ID: 0001 Kevin lable Time: 01:30:00 PM Merlinedarion sotelo [facility] 1 16:18:30 Benign essentia l hyperten rupesh 5474022 Active 2014 Hyperten rupesh, Benign;R ecorded Elsewher e: No Locat ion: [facility] S ource: [employer] Manager pete: N Practi ce ID: 0001 Kevin lable Time: 11:30:00 AM Not Available [facility] 0 19:01:05 Problem Notes None recorded. Procedures Surgical History Date Name Laterality Status Provider Name and Address Organization Details Recorded Time 11/03/19 25 Endometrial Biopsy completed Marcin Heredia MD [address], [place], [address], [facility] 11/02/2024 20:36:48 09/22/19 25 Date of Last Pap Smear completed [facility] 11/02/2024 10:01:03 03/31/20 24 Date of Last Mammogram completed [facility] 11/02/2024 10:03:10 12/15/19 00 Caesarean Section completed [facility] 09/21/2024 16:50:14 12/28/18 92 Caesarean Section completed [facility] 09/21/2024 16:49:[address] [facility] 01/25/2021 15:25:58 biopsy of breast completed [facility] 09/21/2024 10:33:[address] [facility] 08/04/2020 10:59:01 Unlisted px accessory sinus completed [facility] 08/04/2020 10:59:15 Imaging Results None recorded. Procedure Notes None recorded. Medical Equipment None Reported. Allergies No known drug allergies Medications Name Sig Start Date Stop Date Status Note LastModified by Organization Details LastModified Time atorvasta tin 10 mg tablet 09/09 completed Not Available Not Available Not Available azithromy raysa 250 mg tablet 02/23 completed Not Available Not Available Not Available fluconazo le 150 mg tablet Take 1 tablet by mouth now, repeat in 7 days 10/19 completed Not Available Not Available Not Available FreeStyle Lancets 28 gauge 09/21 completed Not Available Not Available Not Available terconazo le 0.8 % vaginal cream 09/04 completed Not Available Not Available Not Available Flonase 50 mcg/actua tion nasal spray,deepa pension spray 1 spray by intranas al route every day in each nostril 02/18 completed Prescrib ed Elsewher e: Yes Loca tion: Juanita shi [facility] odify By: oscar cuello DateTime : 12/26/19 14 02:45:00 PM Not Available Not Available Not Available peg-elect rolyte solution 420 gram oral solution 02/23 completed Not Available Not Available Not Available nystatin- triamcino lone 100,000 unit/gram -0.1 % topical ointment APPLY TO THE AFFECTED AREA(S) BY TOPICAL ROUTE 2 TIMES PER DAY FOR 5 DAYS 10/19 completed Not Available Not Available Not Available cefadroxi l 500 mg capsule take 1 capsule by oral route every 12 hours for 10 days 12/29 completed Prescrib ed Elsewher e: No [facility] By: patricia mcnamara DateTime : 12/30/19 16 02:15:00 PM Not Available Not Available Not Available benzonata te 100 mg capsule 02/23 completed Not Available Not Available Not Available paroxetin e 20 mg tablet take 1 tablet by oral route every day 02/18 completed Prescrib ed Elsewher e: No [facility] By: oscar cuello DateTime : 12/31/19 19 10:30:00 AM Not Available Not Available Not Available lisinopri l 10 mg tablet 09/09 completed Not Available Not Available Not Available promethaz ine 25 mg tablet 02/23 completed Not Available Not Available Not Available progester one micronize d 200 mg capsule take 1 capsule by oral route every day for 12 days in the evening sequenti ally per 28 day cycle 02/23 completed Not Available Not Available Not Available methylpre dnisolone 4 mg tablets in a dose pack 02/23 completed Not Available Not Available Not Available metformin ER 500 mg tablet,ex tended release 24 hr 09/21 completed Not Available Not Available Not Available amoxicill in 875 mg-potass ium clavulana te 125 mg tablet 11/29 completed Not Available Not Available Not Available amoxicill in 500 mg-potass ium clavulana te 125 mg tablet 09/09 completed Not Available Not Available Not Available Vitamins and Minerals tablet 01/11 completed Prescrib ed Elsewher e: Yes Loca tion: [facility] odify By: sagrario pagan DateTime : 10/29/19 12 03:00:00 PM Not Available Not Available Not Available FreeStyle Lite Strips 09/21 completed Not Available Not Available Not Available cholecalc iferol (vitamin D3) 1,250 mcg (50,000 unit) capsule Take 1 capsule every week by oral route. 09/08 completed Not Available Not Available Not Available Rabano Yodado 50 mg/15 mL oral liquid 01/11 completed Prescrib ed Elsewher e: Yes Loca tion: [facility] odify By: sagrario pagan DateTime : 10/29/19 12 03:00:00 PM Not Available Not Available Not Available Zyrtec 10 mg capsule 02/18 completed Prescrib ed Elsewher e: Yes Loca tion: [facility] odify By: oscar cuello DateTime : 12/26/19 14 02:45:00 PM Not Available Not Available Not Available Trulicity 0.75 mg/0.5 mL subcutane ous pen injector 09/09 completed Not Available Not Available Not Available Norlyda 0.35 mg tablet Take 1 tablet every day by oral route. 09/04 completed Not Available Not Available Not Available Shingrix (PF) 50 mcg/0.5 mL intramusc ular suspensio n, kit 02/23 completed Not Available Not Available Not Available Lotemax SM 0.38 % eye gel drops 02/23 completed Not Available Not Available Not Available Flucelvax Quad (PF) 60 mcg (15 mcg x 4)/0.5 mL IM syringe 09/04 completed Not Available Not Available Not Available Mounjaro 7.5 mg/0.5 mL subcutane ous pen injector INJECT 7.5 MG SUBCUTAN EOUSLY WEEKLY 09/21 completed Not Available Not Available Not Available Mounjaro 5 mg/0.5 mL subcutane ous pen injector 09/21 completed Not Available Not Available Not Available Mounjaro 10 mg/0.5 mL subcutane ous pen injector Inject by subcutan eous route. active Not Available Not Available No t Available Mounjaro 2.5 mg/0.5 mL subcutane ous pen injector 09/09 completed Not Available Not Available Not Available Vitals Date Recorded Body height Body mass index (BMI) Body weight Systolic blood pressure Diastolic blood pressure Provider Name and Address Organization Details Last Updated DateTime 09/10/2023 153.04 cm 41.8 kg/m2 42865.95 g 157 mm[Hg] 92 mm[Hg] Reajosué Tellez [facility] 4 10:07:55 Date Recorded Systolic blood pressure Diastolic blood pressure Provider Name and Address Organization Details Last Updated DateTime 09/21/2024 144 mm[Hg] 87 mm[Hg] Gabi oWrley [facility] 09/21/2024 11:39:26 Date Recorded Body height Body mass index (BMI) Body weight Systolic blood pressure Diastolic blood pressure Provider Name and Address Organization Details Last Updated DateTime 09/21/2024 153.04 cm 40 kg/m2 17505.18 g 155 mm[Hg] 85 mm[Hg] Nory Pastrana [facility] 5 10:29:52 Date Recorded Body height Body mass index (BMI) Body weight Systolic blood pressure Diastolic blood pressure Provider Name and Address Organization Details Last Updated DateTime 10/19/2022 153.04 cm 39.8 kg/m2 81085.87 g 146 mm[Hg] 88 mm[Hg] Kath Young [facility] 3 10:12:11 Date Recorded Body height Body mass index (BMI) Body weight Systolic blood pressure Diastolic blood pressure Systolic blood pressure Diastolic blood pressure Provider Name and Address Organization Details Last Updated DateTime 5 153.04 cm 40.5 kg/m2 86364.8 1 g 192 mm[Hg] 103 mm[Hg] 188 mm[Hg] 105 mm[Hg] Gabi Worley [facility] 5 10:00:31 Social History Question Answer Notes LastModified by Organizat ion Details LastModified Time Tobacco Smoking Status Never Smoker Merline Sanchez ashleigh, [facility] 09/17/2022 09:59:30 Do You Have An Advance Directive? No [email or web address] Information n ot available 09/21/2024 How Many Years Have You Consumed Alcohol? 5 Information not available 01/25/2021 Are You Blind Or Do You Have Difficulty Seeing? No Information n ot available 01/25/2021 What Is Your Level Of Caffeine Consumption? Occasional Information not available 09/17/2022 How Much Tobacco Do You Chew? None Information not available 01/25/2021 In The 14 Days Before Symptom Onset, Have You Had Close Contact With A Laboratory-confirm ed COVID-19 While That Case Was Ill? No Information n ot available 09/17/2022 In The 14 Days Before Symptom Onset, Have You Had Close Contact With A Person Who Is Under Investigation For COVID-19 While That Person Was Ill? No Information not available 09/17/2022 Have You Been To An Area Known To Be High Risk For COVID-19? No Information not available 01/25/2021 Are You Deaf Or Do You Have Serious Difficulty Hearing? No Information not available 01/25/2021 What Type Of Diet Are You Following? REGULAR Information n ot available 01/25/2021 What Is The Highest Grade Or Level Of School You Have Completed Or The Highest Degree You Have Received? [id number] Information not available 01/25/2021 Are There Any Guns Present In Your Home? Yes Information not available 01/25/2021 Do You Use Protection During Sex? No Information not available 01/25/2021 Do You Use Your Seat Belt Or Car Seat Routinely? Yes Information not available 01/25/2021 Do You Have Smoke And Carbon Monoxide Detectors In Your Home? Yes Information not available 01/25/2021 How Much Tobacco Do You Smoke? No Information not available 01/25/2021 Do You Use Sunscreen Routinely? No Information not available 01/25/2021 Have You Used IV Drugs? No Information not available 01/25/2021 Do You Have Difficulty Walking Or Climbing Stairs? No Information not available 09/17/2022 Sex: Unknown Functional Status Question Answer Note LastModified by Organizat ion Details LastModified Time Do you use any illicit or recreational drugs? No Information not available 01/25/2021 What is your level of alcohol consumption? Occasional Information not available 01/25/2021 Are you able to walk? YESWOREST Information not available 01/25/2021 Are you able to care for yourself? 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 No Information not available 09/17/2022 What is your exercise level? Occasional Information not available 01/25/2021 Mental Status Question Answer Note LastModified by Organization D etails LastModified Time Do you feel stressed (tense, restless, nervous, or anxious, or unable to sleep at night)? [id number] Information not available 09/17/2022 Family History Relationship Description Onset Age of this Age Resolved Age Notes LastModified by Organization Details LastModified Time Paternal Grandmother Diabetes mellitus Not available 2020 10:57:54 Father Diabetes mellitus Not available 2020 10:57:54 Father Hypertensive disorder Not available 2020 10:58:05 Father Malignant neoplasm of lung [email or web address] Not available 2024 09:44:52 Mother Hypertensive disorder Not available 2020 10:58:05 Maternal Grandmother Congenital heart disease [email or web address] Not available 2024 09:44:52 Maternal Aunt Diabetes mellitus Not available 2020 10:58:45 Medical History Condition Response Allergies (Food, seasonal, environmental ) N Other N Drug/Latex Allergies/Reactions N Blood Transfusion N Breast Cancer N Lung Disease N Dermatologic Disorders N Defects or Inherited Disease N Breast Problem N Gestational Diabetes N Hematologic disorders N Anesthesia Complications N History of STI N Deep Vein Thrombosis N Polycystic ovary syndrome N Anxiety Disorder N Autoimmune disease N Arthritis N Polyps N Infertility N Acid Reflux (GERD) N History of abnormal pap N Cancer N Varicosities N Stroke N Neurologic/Epilepsy N Endometriosis N High Cholesterol N Fibromyalgia N Headaches N Kidney Disease N Heart Problems N Thyroid Problems N Kidney or Bladder Problems N GI Problems N Eating Disorder N Anemia N Art (IVF or FET) N Psychiatric Illness N Ovarian Cancer N Diabetes Y Pulmonary (TB, Asthma) N Hepatitis/Liver Disease N No Past Medical History N Eczema N Urinary Tract Infection N Abuse/Domestic Violence N Asthma N Trauma/Violence N Depression/ depression N Heart Disease N Pre-Eclampsia N Hypertension Y Osteoporosis N Thrombophilias N Gynecological History Statement/Question Response Abnormal Pap N Date of Last Mammogram 03/31/2024 Date of LMP 05/29/2024 On BCP's at Conception? N N Was last menstrual period normal N STIs/STDs N HPV Vaccine N Duration of Flow (days) 2 Current Control Method Menopause Age at First Child 22 Are cycles usually normal N Sexually Active? Y Menses Monthly N Age of first menstrual cycle 11 Date of Last Pap Smear 09/21/2024 Sexual Problems? N Desired Control Method Withdrawal LMP Definite N Obstetrics History GPAL:G 3 P 2 0 1 2 Type Value Full Term 2 Induced 1 Living 2 Total 3 Past Encounters Encounter ID Performer Location Encounter Start Date Encounter Closed Date Diagnosis/Indication Diagnosis SNOMED-CT Code Diagnosis ICD10 Code Diagnosis Note [id number] Marcin Heredia MD [place] [address] [address] 11/30/2019 10:26:26 11/30/2019 11:47:10 Cyst of ovary [id number] N83.209 This patient is a 49-year-ol d female who presents forfollow- up on ovarian lesions. She has ahypoechoi c small lesion and a hyperechoi c small lesion. They are stable. The cystic structure is smaller. She has no symptoms.W e agreed to do 1 more ultrasound in 6 months. Patientnee ds to lose weight and is going to do so with the Tobias protein method. She will follow-up in 6 months also. [id number] MD Rose Mary Lundy [address],[place] [address] 11/30/2019 10:27:20 11/30/2019 12:09:09 Cyst of left ovary [id number] N83.292 [id number] MD Rose Mary Lundy [address],[place] [address] 08/04/2020 10:06:49 08/04/2020 10:53:19 Cyst of left ovary [id number] N83.292 [id number] Marcin Heredia MD [place] [address],[place] [address] 08/04/2020 10:07:14 08/04/2020 11:12:55 Cyst of ovary 83083266 N83.209 this patient is a 49-year-ol d female presents for follow-up on ovarian lesions. She has 2 cystic structures on the left ovary. These appear benign and have been followed now for 6 months. We will repeat months. The patient feel more comfortabl e knowing lesions are stable. They have not changed. She will follow-up again in 6 months with repeat ultrasound and to see me. Additional precaution jett measures were taken to minimize potential exposure to the Covid-19 virus during this patient s visit, including available hand loan review officer upon arrive, temperatur e check and being asked a series of screening questions. All staff wore face coverings during this encounter, as well as provided additional cleaning and sanitizing of all surfaces, including countertop s, pens, chairs, door handles, light switches, etc, prior to and following the patient s visit. [id number] MD Rose Mary Lundy [address],[place] [address] 01/25/2021 15:16:28 01/26/2021 13:04:40 Contraception care management [id number] Z30.9 this patient is a 50-year-ol d female who presents for follow-up on ovarian cyst. Her cyst is slightly smaller. She had a pelvic ultrasound . We talked about those results. We viewed images together. We spent time talking about obesity and weight management . We discussed calorie counting, her basal metabolic rate, her calorie requiremen ts. . She will follow-up in 6 months. We agreed that a follow-up ultrasound the cyst would be beneficial . The hyperechoi c area in the ovaries stable. The cyst is slightly smaller. We also spent time talking about her abnormal uterine bleeding. We agreed to a management plan whereby she takes the progestero ne normal oral contracept vickie pill. [id number] Marcin Heredia MD [place] [address],[place] [address] 01/19/2021 09:29:01 01/19/2021 10:21:11 Cyst of left ovary [id number] N83.292 [id number] Marcin Heredia MD [place] [address],[place] [address] 07/27/2021 15:33:55 07/28/2021 10:55:37 Mass of ovary 422778535 R19.09 This patient is a 50-year-ol d female who presents for follow-up on ovarian lesion. Ultrasound was repeated in the ultrasound is unchanged. The lesion appears unchanged. We discussed these findings. We Agreed to observe for symptoms or any other changes in 1 potentiall y check this again when she returns for her annual exam. [id number] Marcin Heredia MD [place] [address],[place] [address] 02/23/2021 16:04:26 02/23/2021 17:24:00 Gynecologic examination 75408144 Z01.419 This patient is here for her annual exam. A thorough history was taken. A physical exam was performed. Age appropriat e routine health screening was ordered, performed, and discussed. Recommende d testing was ordered. She was asked to follow up in one year. She will be informed of any test results. Mammogram - [orderd] Colonoscop y - [done ] Bone Density - [ na ] Cholestero l - [ done ] Pap - today [id number] Marcin Heredia MD [place] [address],[place] [address] 07/17/2021 14:58:42 07/17/2021 15:55:42 Cyst of right ovary [id number] N83.291 [id number] Mirella Og EBER [place] [address],[place] [address] 09/04/2022 15:52:20 09/04/2022 16:26:30 Vaginitis 14729684 N76.0 Suspect yeastVagin itis panel sentSTI endocervic al testing sentVulvar care guidelines discussed, discontinu e use of scented soaps/prod uctsCrisco to vulva twice a day, use this as lubricatio n with ICRx sent, R/B/A discussedR TC for WWE as she is due Time spent in visit is a total of 20 mins with at least 50% of visit consisting of counseling and review of plan of care. BP elevated. No symptoms. Recommende d PCP f/u for BP check. ED precaution s discussed. Vulval irritation 954244 003 N90.89 [id number] Mirella Og EBER [place] [address],[place] [address] 09/05/2022 17:14:49 09/06/2022 15:06:32 Gynecologic examination 37703640 Z01.419 Take Calcium with Vitamin D 12-1500mg daily. Do monthly self breast exams. It is advised to get annual flu shot in the fall and she could obtain at [facility] or [facility] take care clinic. If you haven't received the Tdap vaccine in the last 10 years you should obtain one as well. Have mammogram yearly, bone density every 2-3 years and colonoscop y every 5-10 years depending on findings and history. Engage in daily exercise of low impact aerobic exercise 45-60 minutes 4-5 times weekly. Avoid tobacco and illicit drugs as well as using moderation with alcohol intake less than 1-2 8 oz beverages daily. This lifestyle behavior pattern will lead to less health conditions and longer life span. If BMI greater than 25 weight watchers or dietary consult advised. Questions have been answered. Patient appears to understand instructio ns, but if you have any further questions call or respond to this email [email or web address] opausal, periods every 2-4 months x 1 yearwe discussed the perimenopa use transition - continue to log devon has been following with Dr. Heredia for ovarian lesion, has been stable on repeat imaging. She has f/u imaging scheduled on 09/17.No hx of abnormal papsPap done todaySTI testing declinedBigg shi has a mammogram scheduledU TD with colonoscop y, due next yearUTD with PCP for routine labsWe discussed healthy eating, regular exercise. She does regular exercise on her peloton. Interested in [facility], informatio n given. [id number] Marcin Heredia MD [place] [address],[place] [address] 09/14/2022 14:59:42 09/14/2022 15:54:56 Cyst of left ovary [id number] N83.292 [id number] Marcin Heredia MD [place] [address],[facility] [place] [address] 09/17/2022 09:49:12 09/17/2022 11:34:02 Cyst of ovary [id number] N83.209 patient is a 52-year-ol d female presents for ultrasound follow-up. We reviewed her ultrasound . She has a very small cystic structure with a hyperechoi c intralumin al nodule . It is stable and avascular. We agreed to just observe this. She has elevated blood pressures. We talked about that. She is going to check her blood pressure at home and she is going to contact her primary care doctor. She has a strong family history of hypertensi on. We spent 20 minutes face-to-fa ce. More than 50% was counseling . She has occasional ovulation with a menstrual cycle every few months. I instructed her to contact us if she had bleeding with out the premenstru al symptoms. She has very strong premenstru al symptoms and her bleeding episodes are very consistent in length and volume. [id number] MARIO ALBERTO Woodson [place] [address],[facility] [place] [address] 10/19/2022 09:43:13 10/19/2022 12:18:02 Obesity [id number] E66.9 Today a detailed history was obtained. We talked about her weight loss struggles and success.we discussed her diet. Recommende d eating breakfast daily, getting protein in the morning. We discussed protein intake, healthy eating choices, portion sizes, limiting sugary drinksShe is going to schedule with the mini bar attendant for consultDis cussed exercise recommenda tions - 150 minutes of exercise a week. We discussed walking, biking, swimming, rodriguez, yoga, pilates, resistance bands, strength exercises. Fasting labs orderedwe briefly discussed obesity medication options.-s chejaswantle with mini bar attendant- have fasting labs done-incor porate exercise-c heck insurance coverage for obesity medication -RTC for f/u in about 2 weeks Time spent in visit is a total of 55 mins with at least 50% of visit consisting of counseling and review of plan of care. [id number] MARIO ALBERTO Woodson [place] [address] [address] 09/10/2023 10:00:03 09/10/2023 11:34:57 Gynecologic examination [id number] Z01.419 WWEpap updateddec lined STI screenmamm ogram: scheduled 02/2024 with breast specialist colonoscop y 5 yrs ago, encouraged pt to find out when due for repeatrout ine labs UTD/PCP Take Calcium with Vitamin D daily. Do monthly self breast exams. It is advised to get annual flu shot in the fall and she could obtain at [facility] or [facility] take care clinic. If you haven't received the Tdap vaccine in the last 10 years you should obtain one as well. Have mammogram yearly, bone density every 2-3 years and colonoscop y every 5-10 years depending on findings and history. Engage in daily exercise of low impact aerobic exercise 45-60 minutes 4-5 times weekly. Avoid tobacco and illicit drugs as well as using moderation with alcohol intake less than 1-2 8 oz beverages daily. This lifestyle behavior pattern will lead to less health conditions and longer life span. If BMI greater than 25 dietary consult advised. Questions have been answered. Patient appears to understand instructio ns, but if you have any further questions call or respond to this email Postmenopa usal bleeding [id number] N95.0 possible PMBwe agreed to update pelvic u/swill reach out to pt with results to discuss next steps [id number] MARIO ALBERTO Woodson [place] [address] [address] 09/21/2024 10:22:14 09/21/2024 12:04:59 Gynecologic examination [id number] Z01.419 WWEPap - done todaySTI screen - declinedMa mmogram - UTD/follow s with breast specialist Colon cancer screening - UTD/PCP ordersDexa - n/aRoutine labs - UTD/PCPBP precaution s discussed, encouraged PCP f/uRTC in 1 yr or sooner if needed Do monthly self breast exams.It is advised to get annual flu shot in the fall and she could obtain at local pharmacy. If you haven't received the Tdap vaccine in the last 10 years you should obtain one as well.Have mammogram yearly, bone density every 2-3 years and stay up to date on colon cancer screening. Engage in regular exercise. Avoid tobacco and illicit drugs. This lifestyle behavior pattern will lead to less health conditions and longer life span. If BMI greater than 25 dietary consult advised.Qu estions have been answered. Irregular periods [id number] N92.6 discussed perimenopa use and her period hxrecommen ded updated pelvic u/sordered , encouraged to schedule, will update pt with results when available and discuss next steps/cayden mmendation s [id number] Marcin Heredia MD [place] [address] [address] 09/22/2024 16:24:30 09/22/2024 17:19:02 Irregular periods [id number] N92.6 [id number] Marcin Heredia MD [place] [address] [address] 11/02/2024 09:44:42 11/03/2024 09:26:53 Postmenopausal bleeding [id number] N95.0 Possible failure of the endometria l biopsy. Little tissue was obtained. The Pipelle was likely in the cervix only. To plan hysterosco py D&C. Health Concerns Section Related Observation LastModified by Organization Detai ls LastModified Time None Recorded Concern Status LastModified by Organization Details LastModified Time None Recorded Advance Directives Directive N: Payers Encounter Date Sequence Insurance Name Policy Number Policy Rodrigues Covered Member ID Rodrigues Member ID Guarantor Name 10/19/2022 1 [employer] - [employer] - [employer] () Ajit Clarke [id number] Merline Clarke 09/10/2023 1 [employer] - [employer] - [employer] () Ajit Clarke [id number] Merline Clarke 09/21/2024 1 [employer] - [employer] - [employer]IME () [id number] Ajit Clarke [id number] Merline Clarke 09/22/2024 1 [employer] - [employer] () [id number] Ajit Clarke [id number] Merline Clarke 11/02/2024 1 [employer] - [employer] () [id number] Ajit Clarke [id number] Merline Clarke Notes Date Note Type Note Provider Name and Address Organization Details Recorded Time 3 text/htm l 52yopresents for initial obesity management [id number], BMI 40weight gain has been associated with recent job changes. She was working from home and had more time to meal prep and exercise. 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 and has gained about 40lbsshe eats breakfast most days, often is snacking throughout the day, never feels fullno current exercise, does have a peloton at home and was exercising about 5 times per weeksleeps 7 hours a night, previously tested for sleep apnea which was negative per patient past medical hx : gestational diabetespast surgical hx : c/s, diagnostic lap/gyne, sinus proceduremedications : none never smokeroccasional alcoholnever drug use fam hx : obesity, diabetesperimenopausal MARIO ALBERTO Woodson [address], [place], [address], [facility] 10/19/2022 11:30:10 4 text/htm l Annual GYNReported bypatient.Menstrual cycle:Perimenopausal Urinary symptoms:No hematuria; No incontinence Vulva:No genital lesion Vagina:Normal vaginal discharge Breast:No breast pain; No breast lump; No nipple discharge Sexual complaints:No sexual complaints; No pain during intercourse; Normal libido Menopausal Symptoms:No menopausal symptoms; Normal vaginal lubrication Psychological symptoms:No depression; No anxiety; No PMDD Preventive measures:Encourage self breast examination; Encourage regular exercise; Encourage no tobacco use; Encourage regular mammograms starting age 40Notes:WWEpap last 08/2022: normalperiods every 1-3 months until 06/2022. Normal period 06/2022, then 06/2023 had 2 days of light spottingmammogram: following with jim, had benign right breast biopsy 03/2023. Repeat mammogram and f/u with breast specialist scheduled for 02/2024.colonoscopy at 48 - unsure when she is due for repeat medical hx : diabetes, HTN MARIO ALBERTO Woodson [address], [place], [address], [facility] 09/10/2023 11:31:29 5 text/htm l Annual GYNReported bypatient.Menstrual cycle:Perimenopausal Urinary symptoms:No hematuria; No incontinence Vulva:No genital lesion Vagina:Normal vaginal discharge Breast:No breast pain; No breast lump; No nipple discharge Sexual complaints:No sexual complaints; No pain during intercourse; Normal libido Menopausal Symptoms:No menopausal symptoms; Normal vaginal lubrication Psychological symptoms:No depression; No anxiety; No PMDD Preventive measures:Encourage self breast examination; Encourage regular exercise; Encourage no tobacco use; Encourage regular mammograms starting age 40Notes:54yo wweperimenopausal, periods irregular for the past 2 yrs.last periods were 06/2022, 06/2023, and 05/2024last pap 09/10/2023 : ascus, HPV (-)mammogram UTD 02/2024 (follows with breast specialist)colonoscopy UTD MARIO ALBERTO Woodson [address], [place], [address], [facility] 09/21/2024 11:51:52 5 text/htm l this patient is a 54-year-old female presents for persistent postmenopausal bleeding. She has a Thin endometrium. we will attempt endometrial biopsy today to confirm that malignancy is not present. She has been bleeding for some time. The procedure was explained to the patient in detail. She understands the procedure. She understands the risks, benefits, and alternatives. She has completed the informed consent process and is ready to proceed. Marcin Heredia MD [address], [place], [address], [facility] 11/02/2024 20:39:48 OBGyn Episode Ob Episode Information Episode Created Date Number of Fetuses Patient Bloodtype Patient rh Status Prepregnancy Weight lbs Domestic Partner Domestic Partner Phone Father Name Dot Etcher Apprentice Status 08/04/19 21 1 CLOSED Fetus Data First Name Last Name Admitted to NICU Weight (g) Sex Living Outcome Pediatric Complications Fetus ID Race Codes Race Delivery Type , Induced [id number] Leonardo Calculation Initial Leonardo Date Initial Exam Date Initial Exam Provider Initial Ultrasound Date Last Menstrual Period Date Ultra Sound Weeks Gestation 0 Eighteen To Twenty Week Leonardo Update Ultra Sound Date Fundal Height At Umbil Quickening Date Ultra Sound Latest Weeks Gestation Final Leonardo Confirmed By Final Leonardo Confirmed Date Final Leonardo Date Ultra Sound Latest Days Gestation 0 0 Menstrual History Last Menstrual Date Menses Monthly On Bcp Conception Prior Menses Frequency Hcg Plus Date Menarche Onset Age Delivery Information Delivery Date Delivery Type Labor Anesthesia Weeks Gestation Incision Type Labor Labor Length Hrs Delivered By Post Complications Tubal Sterilization Discharge Date Comments 4 Discharge Information Feeding Method Contraceptive Method Maternal HG B and HCT Levels Ob Episode Information Episode Created Date Number of Fetuses Patient Bloodtype Patient rh Status Prepregnancy Weight lbs Domestic Partner Domestic Partner Phone Father Name Dot Etcher Apprentice Status 08/04/19 21 1 CLOSED Fetus Data First Name Last Name Admitted to NICU Weight (g) Sex Living Outcome Pediatric Complications Fetus ID Race Codes Race Delivery Type F [id number] Primary Leonardo Calculation Initial Leonardo Date Initial Exam Date Initial Exam Provider Initial Ultrasound Date Last Menstrual Period Date Ultra Sound Weeks Gestation 0 Eighteen To Twenty Week Leonardo Update Ultra Sound Date Fundal Height At Umbil Quickening Date Ultra Sound Latest Weeks Gestation Final Leonardo Confirmed By Final Leonardo Confirmed Date Final Leonardo Date Ultra Sound Latest Days Gestation 0 0 Menstrual History Last Menstrual Date Menses Monthly On Bcp Conception Prior Menses Frequency Hcg Plus Date Menarche Onset Age Delivery Information Delivery Date Delivery Type Labor Anesthesia Weeks Gestation Incision Type Labor Labor Length Hrs Delivered By Post Complications Tubal Sterilization Discharge Date Comments 2 Discharge Information Feeding Method Contraceptive Method Maternal HG B and HCT Levels Ob Episode Information Episode Created Date Number of Fetuses Patient Bloodtype Patient rh Status Prepregnancy Weight lbs Domestic Partner Domestic Partner Phone Father Name Dot Etcher Apprentice Status 08/04/19 21 1 CLOSED Fetus Data First Name Last Name Admitted to NICU Weight (g) Sex Living Outcome Pediatric Complications Fetus ID Race Codes Race Delivery Type F [id number] Repeat Leonardo Calculation Initial Leonardo Date Initial Exam Date Initial Exam Provider Initial Ultrasound Date Last Menstrual Period Date Ultra Sound Weeks Gestation 0 Eighteen To Twenty Week Leonardo Update Ultra Sound Date Fundal Height At Umbil Quickening Date Ultra Sound Latest Weeks Gestation Final Leonardo Confirmed By Final Leonardo Confirmed Date Final Leonardo Date Ultra Sound Latest Days Gestation 0 0 Menstrual History Last Menstrual Date Menses Monthly On Bcp Conception Prior Menses Frequency Hcg Plus Date Menarche Onset Age Delivery Information Delivery Date Delivery Type Labor Anesthesia Weeks Gestation Incision Type Labor Labor Length Hrs Delivered By Post Complications Tubal Sterilization Discharge Date Comments 0 Discharge Information Feeding Method Contraceptive Method Maternal HG B and HCT Levels
--- OUTSIDE RECORDS SUMMARY | 2024-11-24 01:28 | XMS_ITS | Clinical Summary ---
Author Organization [facility] Building Address [address] [place] [id number] Care Team Providers Care Box Toe Cutter Name Role Phone Alfonso Butt Primary Care Provider [phone] Mirella Og WINDOW INSTALLATION SUBCONTRACTOR Unavailable [phone] Allergies Active Allergy Reactions Criticality Noted Date [...] 07/18/2023 Assessment & Plan (07/18/2023 11:37 AM SUPER[employer]): We discussed options of physical therapy she [...] Lipitor. Assessment & Plan (07/10/2023 8:23 PM SUPER[employer]): LDL now at goal with consistent atorvastatin [...] nutrition. Assessment & Plan (07/10/2023 8:25 PM [employer]PL[employer]): A1c above our goal of 7% or [...] desire. She will continue to see her fitness trainer for routine retinal exams. I will assess [...] sugars Assessment & Plan (07/18/2023 11:36 AM SUPERVIS[employer]PPL[employer]): Patient is going to continue current medications, [...] already set up to see endocrinology and nutrition aides teacher we discussed signs and symptoms that would warrant urgent care or going to the ER she will update me on her sugars Elevated glucose 09/19/2022 Assessment & Plan (12/19/2022 10:34 AM CDT): Now diabetic Assessment & Plan (09/19/2022 11:14 AM CDT): Diet and exercise Elevated blood pressure reading 09/19/2022 Assessment & Plan (07/10/2023 8:23 PM SU[employer]): BP's reportedly normal at home. Does not [...] 04/21/2020 Assessment & Plan (04/21/2020 12:07 PM SU[employer]): We cauterized in Jun, it is very [...] and vaginal bleeding, unspecified;Recorded Elsewhere: No Location: [facility] Source: EHR Chronic: N Practice ID: [id number] Billable Time: 03:30:00 PM Cyst of ovary 04/07/2019 Excessive and frequent menstruation with irregul ar cycle 02/18/2019 test negative 12/30/2018 Encounter for general adult medical examination with abnormal findings 11/26/2018 Tear of right supraspinatus tendon, subsequent e ncounter 04/09/2018 Morbid obesity with BMI of 40.0-44.9, adult 11/16 Assessment & Plan (07/18/2023 11:36 AM SUPER[employer]): Patient is seeing endocrinology and starting mounjaro in hopes of controlling her diabetes and assisting with weight loss Assessment & Plan (12/19/2022 10:34 AM CDT): Healthy diet and exercise Assessment & Plan (09/19/2022 11:15 AM CDT): Healthy diet and exercise Other obesity due to excess calories 12/02/2017 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) (routine) w/o abn findings 02/13/2016 Encounter for screening for malignant neoplasm o f rectum 02/13/2016 Menopause present 12/30/2015 Furuncle 12/30/2015 Benign essential hypertension 01/11/2015 Overview (07/18/2023): Hypertension, Benign;Recorded Elsewhere: No Location: [facility] Source: EHR Chronic: N Practice ID: [id number] [...] c-pap Assessment & Plan (04/26/2020 11:45 AM SUPERVISOR [employer]PPLY): Patient was borderline on her test she [...] 3 months to vlad Knight 03/01/2017 04/21/2020 Encounters Date Type Department Care Team Description 09/28/2024 1:03 PM CDT - 09/28/2024 11:59 PM CDT Hospital Encounter [facility] [address] [place] [id number] Finger pain, right Discharge Disposition: Discharge to home or self care from Last 3 Months Immunizations Immunization Administration Dates Next Due Flucelvax Influenza Quad 08/18/2019 Influenza, Quadrivalent, Spl it, Preservative Free, Intramuscular 04/21/2020 Influenza, Unspecified 05/17/2023(Deferr ed: Patient decision),04/17/2023(Deferred: Patient Refused),03/23/2023(Deferred: Patient decision),04/22/2022(Deferred: Patient decision),04/21/2022,04/21/2022(Deferr ed: Patient decision),04/21/2021 ZOSTER Recombinant 04/21/2020,08/18/2019 Surgical History Surgery Date Site/Laterality Comments SECTION 06/17/1999 - 06/16/2000 SINUS SURGERY SECTION 06/17/1991 - 06/16/1992 BREAST BIOPSY 03/21/2023 Right Medical History Medical History Date Comments Overweight Diabetes mellitus (HCC) Hyperlipidemia Family History Medical History Relation Name Comments Lung cancer Father Hypertension Mother Cervical cancer Mother's Sister Breast cancer Neg Hx Relation Name Status Comments Father (Age 76) Mother Alive Mother's Sister Social History Tobacco Use Types Packs/Day Years Used Date Smoking Tobacco: Never Tobacco Cessation:Counseling Given: Not Answered Alcohol Use Standard Drinks/Week Comments Not Currently 0 (1 standard drink = 0.6 oz pur e alcohol) AUDIT-C Answer Date Recorded Q1: How often do you have a drink containing alc ohol? Never 10/03/2023 Average Number of Drinks Not on file Frequency of Binge Drinking Not on file [...] on file Legal Sex Female 1:29 AM SU[employer] Gender Identity Female 05/01/2022 11:48 AM [employer] Sexual Orientation Straight 05/01/2022 11 :48 AM [employer] Obstetrics History Para Term AB IAB SAB Ectopic Multiple Livin g Live Births 2 2 2 Date Outcome GA Total Labor Labor/2nd/3rd Weight Sex Type Anes PTL Nel A1 A5 Name Clin Term Term Last Filed Vital Signs Vital Sign Reading [...] 03/04/2024 11:30 AM CDT Plan of Treatment Health Maintenance Due Date Last Done Comments Cervical Cancer Screening 1970 Foot Exam 1970 DTaP/Tdap/Td Vaccine (1 - Tdap) 08/18/1979 Hepatitis B Screening 1986 Regular Well Visit/Exam 18-64 1986 Pneumococcal vaccine <65 (1 of 2 - PCV) 08/18/1987 Covid-19 Vaccine (4 - 2023-2 5 season) 2024 06/07/2021, 09/16/2020, 08/26/2020 Hemoglobin A1C 09/01/2024 03/04/2024, 10/15, 07/10/2023, Additional history exists Depression Screening 10/17/2024 10/18/2023, 10/03/2023, 08/20/2022, Additional history exists Albumin Creatinine Ratio, Urine 10/29/2024 , 03/13/2023 Dilated Eye Exam 11/27/2024 11/27/2022 Influenza Vaccine (Season Ended) 2025 04/21/2022, 04/21/2021, 04/21/2020, Additional history exists Breast Cancer Screening-Mammogram 03/31/2025 03/31/2024, 03/12/2023, 09/25/2022, Additional history exists Lipid Panel 03/31/2025 03/31/2024, 02/15, 10/30/2023, Additional history exists eGFR 03/31/2025 03/31/2024, 10/30/2023 Colon Cancer Screening-Colonoscopy 03/16/2029 03/16/2019 Hepatitis C Screening Completed 06/04/2014 Colon Cancer Screening-CT Colonography Discontinued 03/16/2019 Colon Cancer Screening-DNA Stool Discontinued 03/16/20 Colon Cancer Screening-FIT Discontinued 03/16/2019 Colon Cancer Screening-Sigmoidoscopy Discontinued 03/16/2019 Zoster Vaccine Completed 04/21/2020, 08/18/2019 Medical Devices Implanted Type Area Charger Tester Device Identifier Shelf Expiration Date Model / Serial / Lot Bard Peripheral Vascular Ultraclip Bard 17ga 10cm 2 Trigger Permanent Ultrasound [id number] - [id number] Implanted:Qty: 1 on 03/21/2023 by Nancy Moreland MD at [facility] Right: Breast Bard Peripheral Vascular [id number] / / Procedures Procedure Name Priority Date/Time [...] HEPATITIS PANEL, ACUTE Routine 06/04/2014 3:47 PM SUPER[employer] from Last 3 Months or Most Recently [...] Tejinder Rubin M.D. MF: MEME Report ID: [id number] Reading Location: [id number] Procedure Note Tejinder Rubin MD - 09/29/2024 EXAM DESCRIPTION: XR [...] Tejinder Rubin M.D. MF: MEME Report ID: [id number] Reading Location: [place] [address] Alfonso MARK IMG XR PROCEDURES Final Result [...] of Race in Diagnosing Kidney Disease, JASN 202). The CKD-EPI equation should not be used for patients with unstable renal function and has not been validated in children and those over 70. Current interpretive data was last reviewed 2021. Testing performed by: [facility], [address] [place] [address], [place]., [address] Blood 03/31/2024 9:39 AM CDT 03/31/2024 11:00 AM CDT us Edwin Godoy DO LAB BLOOD ORDERABLES Fin al Result KIRSTIE [address] [facility] Department [place] [address] * Lipid panel (03/31/2024 9:39 [...] last revised on 2018. Testing performed by: [address] [address] Triglycerides 70 <=149 mg/dL KIRSTIE Comment: Interpretive [...] last revised on 2018. Testing performed by: [address] [address] HDL 47 >=40 mg/dL KIRSTIE Comment: Interpretive [...] last revised on 2018. Testing performed by: [address] [address] LDL, calculated 125 <=129 mg/dL KIRSTIE Comment: Interpretive Data Ages < [...] 3. Francisco Villarreal et al. JUDE Cardiol. 2020 October 15;5(5):540-548. doi: 10.1001/[email or web address].2020.0013 Current Interpretive Data was last revised on 2024. Testing performed by: [address] [address] Non-HDL Cholesterol 138 mg/dL KIRSTIE Comment: Interpretive [...] last revised on 2018. Testing performed by: [address] [address] Chol/HDL ratio 4 KIRSTIE MELGAR Comment:Testing performed by : [facility], [address] [place] [address]., [address] Blood 03/31/2024 9:39 AM CDT 03/31/2024 11:00 AM CDT us Edwin Godoy DO LAB BLOOD ORDERABLES Fin al Result KIRSTIE EMLGAR [address] [facility] Department [place] [address] * Screening Mammogram Bilateral W Souleymane (03/31/2024 8:14 AM CDT) Anatomical Region Laterality Modality Breast Bilateral Mammography Narrative 04/01/2024 1:00 PM CDT Mammogram Technique: Bilateral Digital Breast Tomosynthesis, Bilateral C-view 2D Screening mammogram. Views obtained: bilateral craniocaudal and bilateral mediolateral oblique. Computer Aided Detection was performed. Mammogram Findings: The present examination has been compared to prior imaging studies performed at [facility] on 03/12/2023, at [place], [place] on 09/10/2022, and at [facility] on 09/06/2021. There are scattered areas of [...] compared to prior imaging studies performed at [facility] on 03/12/2023, at [place], [place] on 09/10/2022, and at [facility] on 09/06/2021. There are scattered areas of fibroglandular density. There is no suspicious abnormality in either breast. Impression: There is no mammographic evidence of malignancy. Annual screening mammography is recommended. OVERALL FINAL ASSESSMENT: BI-RADS CATEGORY 1: Negative. Self Screening Mammogram IMG MAMMO PROCEDURES Fi nal Result * POCT hemoglobin A1c (03/04/2024 11:56 AM CDT) Hemoglobin A1C, POC 6.0 4.0 - 5.6 % Blood 03/04/2024 11:5 6 AM CDT Bunny Seymour MD POINT OF CARE TEST ORDE RABLES Final Result * Albumin Creatinine Ratio, Urine (10/30/2023 2:02 PM CDT) Creatinine ur 109.4 Not Estab. mg/dL [facility] - 01 Microalbumin, ur 11.5 Not Estab. ug/mL [facility] - 01 Microalbumin/cre at ratio 11 0 - 29 mg/g creat [facility] - 01 Comment: Normal: 0 - 29 Moderately increased: 30 - 300 Severely increased: >300 Urine 10/30/2023 2:02 PM CDT 10/30/2023 Narrative [facility] - 10/31/2023 10:11 AM CDT Performed at: [address] [place] [id number] Compounder Flavorings: Denilson Espino PhD, Phone: [phone] Result [facility] Bunny Seymour MD LAB URINE ORDERABLES Fi nal Result [facility] - 01 * Diabetic Eye Exam (11/27/2022) Historical Provider HEALTH MAINTENANCE Final Result * Colonoscopy (03/16/2019) Anatomical Region Laterality Modality Other Historical Provider ENDOSCOPY PROCEDURES Anum l Result * Hepatitis panel, acute (06/04/2014 3:47 PM SUPERVIS[employer]) HepBsAg NONREACT NONREACTIVE 06/04/2014 6:19 PM [employer] SUPPLY [facility] HISTORICAL RESULTS Comment: Siemens CentaurXP using LENNY (chemiluminescent immunoassay) technology. NONREACTIVE: IgM antibodies to Hepatitis B Surface antigen not detected. REACTIVE: IgM antibodies to Hepatitis B Surface antigen detected. Reactive results will be confirmed by neutralization testing. HBsAb (immune status) NONREACT NONREACTIVE 06/04/2014 6:19 PM [email or web address] [facility] HISTORICAL RESULTS Comment: Siemens CentaurXP using LENNY (chemiluminescent immunoassay) technology. NONREACTIVE: IgM antibodies to Hepatitis B Surface antibody not detected. REACTIVE: IgM antibodies to Hepatitis B Surface antibody detected. Hep B core IgM NONREACT NONREACTIVE 4 7:04 PM SUPER[employer]OR [employer] SUP[employer]Y [facility] HISTORICAL RESULTS Comment: Siemens CentaurXP using LENNY (chemiluminescent immunoassay) technology. NONREACTIVE: IgM antibodies to Hepatitis B Core antigen not detected. EQUIVOCAL: IgM antibodies to Hepatitis B Core antigen may or may not be present. Obtain a new specimen and retest. REACTIVE: IgM antibodies to Hepatitis B Core antigen detected. Hep A IgM NONREACT NONREACTIVE 06/04/2014 7:04 PM [email or web address] [facility] HISTORICAL RESULTS Comment: Siemens CentaurXP using LENNY (chemiluminescent immunoassay) technology. NONREACTIVE: IgM antibodies to Hepatitis A not detected. This does not exclude possibility of exposure to Hepatitis A or early acute infection. EQUIVOCAL:IgM antibodies to Hepatitis A may or may not be present. Suggest recollection and retest. REACTIVE: Antibodies to Hepatitis A detected. Hep C Ab NONREACT NONREACTIVE 06/04/2014 7:04 PM [email or web address] [facility] HISTORICAL RESULTS Comment: Siemens CentaurXP using LENNY [...] to Hepatitis C detected. 06/04/2014 3:47 PM [employer] 06/04/2014 4:23 PM SUPER[employer] SUPPLY Alfonso MARK LAB MICROBIOLOGY - GENERAL ORDE RABLES Final Result [facility] HISTORICAL RESULTS from Last 3 Months or Most Recently Relevant to Health Maintenance Insurance [facility] [address] [place] [address] [facility] Care Teams Box Toe Cutter Relationship Specialty Start Date End Date Alfonso Butt PA PCP - General Family Medicine 11/26/18 Mirella Og NP Nurse Practitioner Obstetrics and Gynecology 09/10/22
[2024-11-24 07:15] VITALS: BP 137/91; PULSE 95; RESP 16; TEMP 36.3; O2SAT 99; BMI 39.2
[2024-11-24] MEDS: LACTATED RINGERS 1,000 ML 30 ML IV CONT (07:20)
[2024-11-24] MEDS: ACETAMINOPHEN 500 MG TABLET 1000 MG PO (07:35)
--- NOTE | 2024-11-24 08:00 | WPDANESEPPF ---
Anes - Initial Pre Proc Eval Procedure: Operation Date: 11/24/24 09:00 Proposed Procedures p Hysteroscopy Dilation and Curettage - Marcin Heredia MD Date/Time: 11/24/24 08:00 Surgeon: Marcin Heredia MD Pre Op Diagnosis: Post Menopausal Bleeding Patient Data Age: 54 Gender: F Height: 1.55 m Weight: 91.4 kg Allergies Allergy/AdvReac Type Severity Reaction Status Date / Time No Known Allergies Allergy Verified 11/24/24 07:48 Home Medications ?Medication ?Instructions ?Recorded ?Confirmed ?Type lactobacillus combo no.11 15 1 cap PO DAILY 11/18/24 11/18/24 History billion cell sprinkle capsule (Probiotic) lisinopril 20 mg tablet 20 mg PO HS 11/18/24 11/18/24 History multivitamin (Daily Multi-Vitamin 1 tablet PO DAILY 11/18/24 11/18/24 History tablet) tirzepatide 10 mg/0.5 mL 10 mg subcut WEEKLY 11/18/24 11/18/24 History subcutaneous pen injector (Mounjaro) Laboratory Tests 11/24/24 07:38 Sodium Pending Potassium Pending Chloride Pending Carbon Dioxide Pending Anion Gap Pending BUN Pending Creatinine Pending Estim Creat Clear Calc Pending Estimated GFR Pending Glucose Pending Calcium Pending Patient hx anesthesia problems: none Family hx anesthesia problems: none Results Review: All pre-operative results and documents have been reviewed as part of the pre-operative evaluation. [facility] Past Medical History Medical History (Updated 11/24/24 @ 08:00 by Florencio Galvez MD) Diabetes HTN (hypertension) Obesity Social History Social History Smoking status: Never smoker Alcohol intake: current Living arrangements: with family Spiritual care concerns: No Anes - Eval Final PreProcedure Day of Procedure 11/24/24 08:00 Patient weight: obese Heart: regular rate and rhythm Lungs: clear to auscultation Airway: Mallampati scale class II Neurological: alert and oriented Last oral intake: >/= 8 hours ASA classification: III Emergent: no Anesthetic plan: proceed Anesthesia type and monitoring: general GIVS and standard monitoring Results Review: All pre-operative results and documents have been reviewed as part of the pre-operative evaluation. Informed Consent: The patient's anesthetic plan and its attendant risks and benefits were discussed with the patient/family/POA. Questions were solicited and answers provided to the satisfaction of the patient/family/POA.
[2024-11-24 08:03] LABS: Anion Gap 8 mmol/L (4-12); Blood Urea Nitrogen 19 mg/dL (7-17); Calcium 9.7 mg/dL (8.4-10.2); Carbon Dioxide 21 mmol/L (22-30); Chloride 106 mmol/L (98-107); Estimated CRCL calculation 77 ml/min; Estimated Glomerular Filt Rate > 60; Glucose 109 mg/dL (65-110); Potassium 4.1 mmol/L (3.4-5.0); Sodium 135 mmol/L (137-145)
--- NOTE | 2024-11-24 08:32 | WPDHPUPDATE1 ---
History and Physical Update Update Date/Time: 11/24/24 08:32 History and Physical has been reviewed, including an updated exam of the patient. There are NO changes in the patient's condition. Risks, benefits, and alternatives have been discussed and questions answered. Patient agrees to proceed with procedure.
--- NOTE | 2024-11-24 08:32 | PM.IMHP ---
H&P: HPI History of Present Illness Date/Time: 11/24/24 08:32 Chief Complaint: Vaginal bleeding Narrative: This patient is a 54-year-old female with postmenopausal bleeding. We have agreed to perform hysteroscopy D&C. She understands risks, benefits, and alternatives. She has completed the informed consent process is ready to proceed. The patient understands the details of the procedure. The procedure has been explained in detail. She understands the risks. She understands that injuries may occur that result in hospitalization, more surgery, and severe illness. She understands risk of hemorrhage and infection. She denies any chest pain or shortness of breath. She denies any nausea, vomiting, fever, chills. Review of Systems Review of Systems: All systems reviewed & are unremarkable except as noted in HPI and below Constitutional: Constitutional: Denies chills, Denies fatigue, Denies fever(s) and Denies weakness Eyes: Eyes: Denies blurry vision, Denies change in vision, Denies loss of peripheral vision, Denies loss of vision, Denies other visual disturbances and Denies eye pain ENT: Denies vertigo, Denies dizziness, Denies hearing loss, Denies mouth pain, Denies nasal obstruction, Denies neck mass and Denies neck pain Cardiovascular: Cardiovascular: Denies chest pain, Denies diaphoresis, Denies syncope, Denies leg edema and Denies dyspnea Respiratory: Respiratory: Denies chest congestion, Denies cough, Denies hemoptysis, Denies dyspnea and Denies wheezing Gastrointestinal: Gastrointestinal: Denies abdominal pain, Denies constipation, Denies diarrhea, Denies nausea and Denies vomiting Genitourinary: Genitourinary: Denies hematuria, Denies change in libido, Denies nocturia, Denies genital lesions, Denies flank pain and Denies urinary urgency Musculoskeletal: Musculoskeletal: Denies abnormal gait, Denies back pain, Denies myalgias, Denies arthralgias, Denies joint swelling, Denies muscle weakness and Denies neck pain Integumentary/Breasts: Skin/Breast: Denies swelling, Denies breast pain, Denies breast mass, Denies dry skin, Denies nipple discharge, Denies unusual bruising and Denies jaundice Neurologic: Denies Neuro-related abnormal movements, Denies Abnormal speech present, Denies abnormal gait, Denies behavioral changes, Denies confusion, Denies vertigo, Denies dizziness, Denies syncope, Denies loss of vision, Denies memory loss, Denies convulsions and Denies weakness Psychiatric: Psychiatric: Denies abnormal sleep pattern, Denies behavioral changes, Denies change in libido, Denies confusion, Denies depression, Denies anhedonia and Denies memory loss Endocrine: Endocrine: Reports no additional endocrine complaints, Denies change in libido and Denies fatigue Hematologic/Lymphatic: Hematologic/Lymphatic: Reports no additional hematologic/lymphatic complaints Allergic/Immunologic: Allergic/Immunologic: Reports no additional allergic/immunologic complaints and Denies wheezing [facility] Past Medical History Medical History (Updated 11/24/24 @ 08:35 by Marcin Heredia MD) Diabetes HTN (hypertension) Obesity Social History Social History Smoking status: Never smoker Alcohol intake: current Living arrangements: with family Spiritual care concerns: No Meds Home Medications and Allergies Home Medications ?Medication ?Instructions ?Recorded ?Confirmed ?Type lactobacillus combo no.11 15 1 cap PO DAILY 11/18/24 11/18/24 History billion cell sprinkle capsule (Probiotic) lisinopril 20 mg tablet 20 mg PO HS 11/18/24 11/18/24 History multivitamin (Daily Multi-Vitamin 1 tablet PO DAILY 11/18/24 11/18/24 History tablet) tirzepatide 10 mg/0.5 mL 10 mg subcut WEEKLY 11/18/24 11/18/24 History subcutaneous pen injector (Mounjaro) Allergies Allergy/AdvReac Type Severity Reaction Status Date / Time No Known Allergies Allergy Verified 11/24/24 08:33 Exam Const: General: cooperative, healthy appearing, comfortable and no acute distress Orientation/consciousness: oriented to person, oriented to place and oriented to time HENMT: Head: normal to inspection Ears: external ears normal Face/Nose/Sinus: Normal external nose present and normal facial exam Face and sinus: normal facial exam Eyes: General: appearance normal, both eyes and all related structures Neck: Neck: normal visual inspection, trachea midline and supple Resp: Auscultation: clear to auscultation bilaterally, no crackles, no rales, no rhonchi and no wheezes Cardio: Rate: regular rate Rhythm: regular rhythm Heart sounds: no click, no murmurs and no rubs GI: GI Palp: No abdominal tenderness, No Soft to palpation, No Tenderness to palpation present (GI) and No Palpable mass present Auscultation: normal bowel sounds Skin: General skin exam: normal color and no rashes or lesions noted Neuro: General: oriented to person, oriented to place and oriented to time Extrem: General: normal to inspection, no joint enlargement, no clubbing, cyanosis or edema, no pedal edema and no calf tenderness Psych: Appearance: grossly normal Mental Status: mental status grossly normal Speech and movement: Normal speech and movement present H&P: Results Labs Labs: [facility] 11/24/24 07:38 Sodium 135 L Potassium 4.1 Chloride 106 Carbon Dioxide 21 L BUN 19 H Creatinine 0.73 Glucose 109 Calcium 9.7 Assessment and Plan Assessment and plan (1) Postmenopausal bleeding: Code(s): N95.0 - Postmenopausal bleeding Status: Acute
--- NOTE | 2024-11-24 09:09 | S_PTH ---
PATIENT: Merline Clarke LOC: [facility] U#:[id number] AGE/SX: 54/F ROOM: RE11/24/[address]: Marcin Heredia MD : 1970 BED: DIS: 11/24/2024 SPEC #: [id number] RECD: 11/24/24 10:49 STATUS: SHAWN REQ #: [id number] YANI: 11/24/24 09:[address]: Marcin Heredia DEPT: [facility] Surgical RECD BY: Symone Alonzo ENTERED: 11/24/24 10:49 SP TYPE: Surgical OTHR DR: Alfonso Butt, PA-C Tissues: A - Endometrial Curettings Procedures: Hematoxylin and Eosin Stain Gross and Microscopic Level 4
[2024-11-24 09:18] VITALS: BP 188/93; PULSE 88; RESP 16; O2SAT 97
--- NOTE | 2024-11-24 09:33 | W.PM.PROC2 ---
Procedure Note - Detailed Date of Procedure 11/24/24 Pre-op Diagnosis Post Menopausal Bleeding Post-op Diagnosis Same Procedure Performed Hysteroscopy D&C Surgeon Marcin Heredia MD Anesthesia MAC Indications abnormal uterine bleeding Findings Normal appearing vulva, vagina, cervix. Normal-appearing endometrial cavity. Description of Procedure the patient was taken the operating room. She was prepped and draped in the dorsal lithotomy position after induction of mac anesthesia. A speculum was placed in the vagina. The cervix was grasped with a tenaculum. The cervix was dilated about 1 cm. The hysteroscope was inserted. The intrauterine cavity and endocervix were evaluated. Hysteroscope was withdrawn. A medium-size curette was used to curettage all the surfaces were within the endometrial cavity. the sample was collected on Telfa and sent to pathology. The hysteroscope was reinserted and the above findings were noted. Patient tolerated the procedure well. The speculum and tenaculum were removed. She was taken recovery room in stable condition. Sponge lap and needle counts were correct x2. Estimated Blood Loss 40 Drains No Packing No Pathology Yes Complications No immediate complications Condition Stable Disposition PACU
[2024-11-24 09:40] VITALS: BP 142/94; PULSE 56; RESP 17
[2024-11-24 10:10] VITALS: BP 152/85; PULSE 70; RESP 17
[2024-11-24 10:35] VITALS: BP 159/88; PULSE 64; RESP 17
== END 2024-11-24 10:45 | disposition home or self-care (01) ==
PROVIDERS: Anesthesiology; PCP Physician Assistant; Visit Provider Obstetrics & Gynecology
PROC: 0U5B8ZZ Destruction of Endometrium, Via Natural or Artificial Opening Endoscopic (ICD-10-PCS; CPT 58563; principal; 2024-11-24 09:00)
DX: N95.0 Postmenopausal bleeding (principal); E11.9 Type 2 diabetes mellitus without complications
CPT/HCPCS: 58558; 36415; 80048; 88305; A9270; J2003; J2704; J3010; J7120